=== PATIENT | male | born 1960 ===

== ENCOUNTER 2017-01-28 12:07 | Inpatient (IN) ==
[2017-01-28 12:47] LABS: Basophils % 0.2 % (0.0-0.8); Eosinophils % 0.4 % (0.00-10.9); Hematocrit 28.7 VOL% (42.0-52.0); Hemoglobin 9.9 GM/DL (14.0-18.0); Immature Granulocytes % 0.3 %; Immature Granulocytes Absolute 0.03 #; Lymphocytes # 0.4 10*3/uL (1.4-4.0); Lymphocytes % 4.4 % (21.2-54.2); Mean Corpuscular HGB Conc 34.5 GM/DL (32-36); Mean Corpuscular Hemoglobin 31 PG (27-34); Mean Corpuscular Volume 90.5 FL (87-102); Mean Platelet Volume 11.6 FL (9.6-12.0); Monocytes # 0.5 10*3/uL (0.11-0.8); Monocytes % 5.8 % (1.7-12.7); Neutrophils # 8.3 10*3/uL (1.4-7.4); Neutrophils % 88.9 % (38.7-73.9); Platelet Count 117 T/CUMM (130-400); Red Blood Count 3.17 MC/CUMM (3.8-5.5); Red Cell Distribution Width 12.9 % (9.3-17.3); White Blood Count 9.4 T/CUMM (4-12)
[2017-01-28 12:51] LABS: Apearance,Urine CLEAR (Clear); Bilirubin,Urine Negative (Negative); Blood, Urine Small mg/dL (Negative); Glucose,Urine (UA) 50 mg/dL (Negative); Hyaline Casts,Urine 1 /LPF (0-3); Ketones,Urine Negative (Negative); Nitrite,Urine Negative (Negative); Protein,Urine 100 MG/DL; RBC,Urine 7 /HPF (0-4); Urine Color Yellow (Yellow); Urine Specific Gravity 1.009 (1.001-1.035); Urine Urobilinogen < 2.0 EU/DL (0.2-1.0); WBC,Urine <1 /HPF (0-6)
--- NOTE | 2017-01-28 13:14 | CT Report ---
CT of the head without contrast. Indication: Confusion. Comparison: Outside study from [facility], May 25, 2016. There is generalized prominence of the ventricles and sulci, somewhat prominent for the patient's age. There are remote lacunar infarcts within the left basal ganglia. There is a remote cortical infarct in the left occipital lobe. There is no mass effect, midline shift, or area of hemorrhage. The calvarium is intact. Mild mucosal thickening in the ethmoid sinuses. Mastoid air cells are clear. Impression: 1. Prominence of the ventricles and sulci for the patient's age. 2. Remote lacunar infarcts, and remote left occipital infarct. 3. Mild paranasal sinus disease. The CT exam was performed using one or more of the following dose reduction techniques: Automated exposure control, adjustment of the mA and/or kV according to patient size, or use of iterative reconstruction technique. PROCEDURE INTERPRETED AT [facility] DEPARTMENT OF RADIOLOGY Final Report Signed by: Dr. Jhoana Anderson
[2017-01-28 13:19] LABS: Calcium 7.8 MG/DL (8.5-10.1)
[2017-01-28 13:20] LABS: Albumin 3.6 G/DL (3.4-5.0); Bilirubin,Direct 0.2 MG/DL (0.0-0.20); Bilirubin,Indirect 0.4 MG/DL (0.0-1.0); Bilirubin,Total 0.6 MG/DL (0.2-1.0); Osmolality,Calculated 297.5 MOS/KG (273-304); Potassium 4.2 MMOL/L (3.5-5.1); Total Protein 6.4 G/DL (6.4-8.3)
[2017-01-28 13:22] LABS: Lactic Acid 0.9 MMOL/L (0.4-2.0)
--- NOTE | 2017-01-28 13:27 | XRay Report ---
Portable chest. Indication: Confusion and cough. The heart is normal in size. A dual-lumen catheter is in satisfactory position. There is patchy alveolar infiltrate in the left mid and lower lung field. No pneumothorax. No pleural effusion. Mild gaseous distention of bowel. Surgical clips in the right upper quadrant. Impression: Left lower lung field pneumonia. Follow-up recommended. PROCEDURE INTERPRETED AT [facility] DEPARTMENT OF RADIOLOGY Final Report Signed by: Dr. Jhoana Anderson
--- NOTE | 2017-01-28 14:28 | Hospitalist History & Physical ---
<Arielle Miller - Last Filed: 01/28/17 15:38> Assessment and Plan (1) Altered mental status Status: Acute Assessment and plan: CT negative for any acute changes. Blood cultures pending, lactic acid normal, WBC normal. Glucose wnl. Pt. in renal failure. Will continue to monitor. Order labs in am. Current Visit: No (2) Pneumonia Status: Acute Assessment and plan: Start on IV antibiotics (vancomycin and Merrem). Supplemental O2. Monitor O2 sat with pulse ox. Breathing treatments as necessary. Current Visit: Yes (3) ESRD (end stage renal disease) on dialysis Status: Chronic Assessment and plan: Consult Nephrology. Per ER MD, pt. has missed last 2 weeks of dialysis. bun/ creatinine Current Visit: No (4) HTN (hypertension) Status: Chronic Assessment and plan: Prn IV antihypertensive agent. Once pt's med list is confirmed, we will evaluate and restart any appropriate meds. Current Visit: No Qualifiers: Hypertension type: essential hypertension Qualified Code(s): I10 - Essential (primary) hypertension (5) Anemia Status: Acute Assessment and plan: Monitor serial h&h. Recheck CBC in am. PPI. Current Visit: No (6) Diabetes mellitus Status: Chronic Assessment and plan: History of dm. Glucose stable. Will initiate accuchecks achs. SSI. Check Hbg A1c. Current Visit: No History of Present Illness Chief complaint: altered mental status History of present illness: Mr. Swanson is a 56 year old [place] male with a history of hypertension, CVA, diabetes, end-stage renal failure disease on dialysis, chronic back pain, and arthritis that presented to the ED via EMS from home for further evaluation of altered mental status. HPI is limited secondary to patient's current status. Patient is alone in room and no family is present at bedside. Per triage note, the patient's son found him and called EMS for help. Additionally, the patient is noted to have missed dialysis for the past 2 weeks. Duration of altered mental status is also unknown. On examination in the ED, patient was found to be febrile 102.2 and hypertensive. Patient is oriented to name, place, but is not oriented to time and is unable to answer all other questions. Chest x-ray in ED revealed left lower lung field pneumonia. CT was negative for any acute changes. WBC and lactic acid within normal limits. Bun/creatinine noted at 67/ 6. The patient's case has been discussed with Dr. Olivera patient will be admitted to the intensive care unit for closer monitoring and further evaluation and treatment. Home Medications Medication Instructions Recorded Confirmed Type Carvedilol 25 mg PO DAILY 04/05/16 10/11/16 History Gabapentin Cap/Tab [Neurontin 800 mg PO TID 04/05/16 10/11/16 History Cap/Tab] amLODIPine [Norvasc] 10 mg PO DAILY 04/05/16 10/11/16 History Aspirin EC Tab 81 mg PO DAILY #30 tablet 06/02/16 10/11/16 Rx HYDROcodone/ACETAMIN 10-325 [Zirconia 1 tablet PO Q4H PRN #30 tablet 08/23/1610/11 Rx 10-325] Cinacalcet [Sensipar] 30 mg PO DAILY 10/11/16 10/11/16 History Latanoprost [Latanoprost 0.005 % 1 drop BOTH EYES BEDTIME 10/11/16 10/11/16 History Oph Soln] Morphine Sulfate [Morphine Sulfate 30 mg PO BID 10/11/16 10/11/16 History ER] Allergies Allergy/AdvReac Type Severity Reaction Status Date / Time lisinopril Allergy Intermediate ITCHING Verified 01/28/17 12:22 nalbuphine [From Nubain] Allergy Intermediate Vomiting Verified 01/28/17 12:22 pregabalin Allergy Unknown Unknown/Unable Verified 01/28/17 12:22 to obtain Medical,Surgical,& Family Hx - Medical History Cardio: History of: Hypertension Neurology: History of: Cerebrovascular Accident (X7 WEAK R SIDE) No history of: Seizures HEENT: History of: Ear Problem, Eye Problem Endocrine: No history of: Diabetes Mellitus (IDDM) (MEDS), Diabetes Mellitus (NIDDM) ( MEDS) Renal: History of: Dialysis, Renal Failure (CATHETERS IN RIGHT UPPER CHEST) Musculoskeletal: History of: Back/Neck Problems (chronic back pain), Musculoskeletal Problems (ARTHRITIS) Other: No history of: Cancer - Surgical History Abdominal Surgeries: Surgical HX of: Abdominal Surgery, Cholecystectomy, Hernia Repair Orthopedic Surgeries: Surgical HX of;: Orthopedic Surgery (R AND L KNEE R FOOT RENAL CATHETERS) - Family History Family History: Reports;: Family Hypertension - Social History Smoking Status: Never smoker Frequency of Alcohol Use: None Type of Drug Use: None ROS unobtainable: due to mental status Exam - Constitutional Vitals: Period Temp Pulse Resp BP Sys/Venegas Pulse Ox Last 24 Hr 102.2 F-102.2 F 95-95 20-20 182-182/68-68 92 General appearance: normal weight, no acute distress - Head Head exam: Present: normal inspection, normocephalic - Eye Eye exam: Present: EOMI. Absent: scleral icterus Pupils: Present: DIEGO - Respiratory Respiratory exam: Present: other (coarse) - Cardiovascular Cardiovascular exam: Present: regular rate and rhythm - GI/Abdominal GI/Abdominal exam: Present: normal bowel sounds, soft. Absent: tenderness - Extremities Exam Extremities exam: Present: normal capillary refill, edema - Neurological Exam Neurological exam: Absent: altered - Psychiatric Psychiatric exam: Present: other (unable to assess due to mental status) - Skin Skin exam: Present: normal color, warm, dry Results - Labs CBC & BMP: 01/28/17 12:37 01/28/17 12:37 Lab Results: I have reviewed the past 24 hour labs <Alexander Olivera - Last Filed: 01/28/17 16:26> Assessment and Plan - Time spent with patient Time spent with patient: Greater than 30 minutes (I saw and examed pt in his ICU room today. I agree with history, physical, asssessment and plan listed as above by our [employer] CONTROLLER, Will need to consult Nephrology to resume HD. F/u bc and ur result. Continue IV VCN, merrem and add IV leaquin for sepsis due to pneumonia. Adm to ICU for tonight. May need to consult ID in am. Dialysis central line is not covered by sterile film and pt does not know when this film is taken out. Will clean this central line site and redressing it.) History of Present Illness History of present illness: Mr. Swanson is a 56 year old male Exam - Constitutional Vitals: Period Temp Pulse Resp BP Sys/Venegas Pulse Ox Last 24 Hr 99.4 F-102.2 F 66-95 20-22 136-182/68-96 92-100 Results - Labs CBC & BMP: 01/28/17 12:37 01/28/17 12:37
[2017-01-28 15:01] LABS: Platelet Estimate Decreased
[2017-01-28] MEDS ORDERED: GLUCAGON 1 MG VIAL IM PRN (16:07)
[2017-01-28] MEDS ORDERED: ALBUTEROL 2.5 MG/3 ML NEB RESP TX PRN (16:07)
[2017-01-28] MEDS ORDERED: DEXTROSE 50% 25 GM/50 ML VIAL IV PRN (16:07)
[2017-01-28] MEDS ORDERED: ONDANSETRON 4 MG/2 ML VIAL IV PRN (16:07)
[2017-01-28] MEDS ORDERED: LEVOFLOXACIN INJ 750 MG in PREMIX 1 EACH IV ONE (17:00)
[2017-01-28] MEDS ORDERED: VANCOMYCIN INJ 1,500 MG in SODIUM CHLORIDE 0.9% 500 ML IV ONE (18:30)
[2017-01-28] MEDS: INSULIN LISPRO 100 UNIT/ML SUBCUT SCH ×2 (18:40→20:39)
[2017-01-28] MEDS: MEROPENEM 500 MG in SODIUM CHLORIDE 0.9% 100 ML IV SCH (19:00)
[2017-01-28] MEDS: hydrALAZINE 20 MG/1 ML VIAL IV PRN (23:53)
[2017-01-29] MEDS: MEROPENEM 500 MG in SODIUM CHLORIDE 0.9% 100 ML IV SCH (04:24)
[2017-01-29 05:11] LABS: Basophils % 0.2 % (0.0-0.8); Eosinophils % 0.2 % (0.00-10.9); Hematocrit 28.4 VOL% (42.0-52.0); Hemoglobin 9.7 GM/DL (14.0-18.0); Immature Granulocytes % 0.5 %; Immature Granulocytes Absolute 0.05 #; Lymphocytes # 0.7 10*3/uL (1.4-4.0); Lymphocytes % 6.7 % (21.2-54.2); Mean Corpuscular HGB Conc 34.2 GM/DL (32-36); Mean Corpuscular Hemoglobin 31 PG (27-34); Mean Corpuscular Volume 91.3 FL (87-102); Mean Platelet Volume 12.4 FL (9.6-12.0); Monocytes # 0.5 10*3/uL (0.11-0.8); Monocytes % 4.6 % (1.7-12.7); Neutrophils # 9.3 10*3/uL (1.4-7.4); Neutrophils % 87.8 % (38.7-73.9); Platelet Count 102 T/CUMM (130-400); Red Blood Count 3.11 MC/CUMM (3.8-5.5); White Blood Count 10.6 T/CUMM (4-12)
[2017-01-29 05:48] LABS: Lactic Acid 0.7 MMOL/L (0.4-2.0)
[2017-01-29 05:57] LABS: Calcium 7.4 MG/DL (8.5-10.1); Magnesium 1.9 MG/DL (1.8-2.4); Osmolality,Calculated 296.7 MOS/KG (273-304); Potassium 4.4 MMOL/L (3.5-5.1); Risk Ratio 2.03; Thyroid Stimulating Hormone 0.829 uIU/ml (0.358-3.74); VLDL CHOLESTEROL 12.4 MG/DL
[2017-01-29] MEDS: INSULIN LISPRO 100 UNIT/ML SUBCUT SCH ×4 (07:55→21:22)
[2017-01-29] MEDS: ACETAMINOPHEN 325 MG TABLET PO PRN ×2 (09:01→17:19)
[2017-01-29] MEDS: PANTOPRAZOLE 40 MG TABLET PO SCH (09:01)
[2017-01-29] MEDS: hydrALAZINE 20 MG/1 ML VIAL IV PRN (09:21)
--- NOTE | 2017-01-29 10:01 | Hospitalist Progress Note ---
Assessment and Plan - Time spent with patient Time spent with patient: Greater than 30 minutes (1) Diabetes mellitus Status: Chronic Current Visit: No Qualifiers: Chronic kidney disease stage: on chronic dialysis (2) ESRD (end stage renal disease) on dialysis Status: Chronic Assessment and plan: Assessment and Plan (1) Altered mental status Status: Acute Assessment and plan: CT negative for any acute changes. Blood cultures pending, lactic acid normal, WBC normal. Glucose wnl. Pt. in renal failure. Will continue to monitor. Order labs in am. Current Visit: YES (2) Pneumonia Status: Acute Assessment and plan: Start on IV antibiotics (vancomycin and Merrem). Supplemental O2. Monitor O2 sat with pulse ox. Breathing treatments as necessary. Current Visit: Yes (3) ESRD (end stage renal disease) on dialysis Status: Chronic Assessment and plan: Consult Nephrology. Per ER MD, pt. has missed last 2 weeks of dialysis. Current Visit: YES (4) HTN (hypertension) Status: Chronic Assessment and plan: Prn IV antihypertensive agent. Once pt's med list is confirmed, we will evaluate and restart any appropriate meds. Current Visit: YES Qualifiers: Hypertension type: essential hypertension Qualified Code(s): I10 - Essential (primary) hypertension (5) Anemia Status: Acute Assessment and plan: Monitor serial h&h. Recheck CBC in am. PPI. Current Visit: No (6) Diabetes mellitus Status: Chronic Assessment and plan: History of dm. Glucose stable. Will initiate accuchecks achs. SSI. Check Hbg A1c. Current Visit: No Current Visit: No Hospitalist: Subjective Interval history: Patient seen and examined. No acute events overnight. Case discussed with nursing staff. Labs reviewed. The patient has admittedly been noncompliant with his outpatient dialysis treatments. Consult for nephrology has been placed. Exam - Constitutional Vitals: Period Temp Pulse Resp BP Sys/Venegas Pulse Ox Last 24 Hr 97.5 F-102.2 F 57-103 10-22 136-200/57-96 92-100 Exam: Constitutional System: No distress. No tremulousness. Head: Normocephalic, atraumatic. Ears, Nose and Throat System: No pain or tenderness. No epistaxis or discharge Eyes System: Pupils equal, round, and reactive. Extraocular muscles intact. Neck: Supple, without adenopathy, No jugular venous distention. No thyromegaly, neck mass, or prior surgery apparent. Respiratory System: Chest clear to auscultation. Dialysis catheter noted in the right chest Cardiovascular System: Heart with regular rate and rhythm. No murmur. GI System: Abdomen soft, nontender. Normo active bowel sounds present. Musculoskeletal System: limbs with no pedal edema. Full distal pulses. Contracture noted in the right upper extremity Neurological System: No discernable sensory deficit. No aphasia Psychiatric System: Flat affect Results - Labs CBC & BMP: 01/29/17 04:24 01/29/17 04:24 Lab Results: I have reviewed the past 24 hour labs
[2017-01-29] MEDS: MORPHINE ER 30 MG TABLET PO SCH (10:37)
--- NOTE | 2017-01-29 10:45 | Infectious Disease Consult ---
Assessment and Plan (1) Positive blood culture Status: Acute Assessment and plan: Gram-positive cocci in a set of blood cultures. We will have to wait on final ID to determine if true infection versus contamination. It could very well be staph aureus given the presence of his dialysis catheter. Recommendations: 1. Agree with empiric vancomycin. Will consult pharmacy to assist with dosing and monitoring. Goal trough level is ~20. 2. Repeat blood cultures tomorrow 3. If this is not far as we will need echocardiogram to rule out endocarditis 4. Hemodialysis catheter needs to be removed since the patient is now using an AV fistula Current Visit: Yes (2) Pneumonia Status: Acute Assessment and plan: Healthcare associated pneumonia in this patient who goes for dialysis. Recommendations: 1. Patient has not had previous multidrug-resistant organisms isolated so I think we are okay with Zosyn rather than meropenem. Will de-escalate to Zosyn renally dosed at 25 g every 8 hours 2. Agree with empiric vancomycin 3. I will get if possible sputum for Gram stain and culture Thank you very much for the consult. Will follow. Current Visit: Yes (3) Altered mental status Status: Acute Current Visit: No (4) Diabetes mellitus Status: Chronic Current Visit: No Qualifiers: Chronic kidney disease stage: on chronic dialysis (5) ESRD (end stage renal disease) on dialysis Status: Chronic Current Visit: No (6) HTN (hypertension) Status: Chronic Current Visit: No Qualifiers: Hypertension type: essential hypertension Qualified Code(s): I10 - Essential (primary) hypertension History of Present Illness Chief complaint: Suspected infected dialysis catheter, pneumonia History of present illness: Patient was a poor historian so much of the history was obtained from review of the records. Mr. Swanson is a 56 year old male with multiple comorbid including end-stage renal disease on hemodialysis who was brought to the hospital because his son found him with altered mental state and called the ambulance. Apparently the patient missed dialysis for the past 2 weeks. He came to the hospital he was noted to be febrile to 102.2 and an infiltrate was loose within the left lung base. He was admitted to ICU and started on broad-spectrum empiric antibiotics. Patient never required vasopressor support. He had an AV fistula done in July this year and he says he has been using it for the past 2 months at dialysis, however he still has dialysis catheter in the right subclavian. Home Medications Medication Instructions Recorded Confirmed Type Carvedilol 25 mg PO BID 04/05/16 01/29/17 History Gabapentin Cap/Tab [Neurontin 800 mg PO TID 04/05/16 01/29/17 History Cap/Tab] amLODIPine [Norvasc] 10 mg PO DAILY 04/05/16 01/29/17 History Aspirin EC Tab 81 mg PO DAILY #30 tablet 06/02/16 01/29/17 Rx Cinacalcet [Sensipar] 30 mg PO DAILY 10/11/16 01/29/17 History Latanoprost [Latanoprost 0.005 % 1 drop BOTH EYES BEDTIME 10/11/16 01/29/17 History Oph Soln] Morphine Sulfate [Morphine Sulfate 30 mg PO DAILY 10/11/16 01/29/17 History ER] Allergies Allergy/AdvReac Type Severity Reaction Status Date / Time lisinopril Allergy Intermediate ITCHING Verified 01/28/17 12:22 nalbuphine [From Nubain] Allergy Intermediate Vomiting Verified 01/28/17 12:22 pregabalin Allergy Unknown Unknown/Unable Verified 01/28/17 12:22 to obtain ROS unobtainable: due to mental status Medical,Surgical,& Family Hx - Medical History Cardio: History of: Hypertension Neurology: History of: Cerebrovascular Accident (X7 WEAK R SIDE), Seizures HEENT: History of: Ear Problem, Eye Problem Endocrine: History of: Diabetes Mellitus (NIDDM) (MEDS) No history of: Diabetes Mellitus (IDDM) (MEDS) Renal: History of: Dialysis, Renal Failure (CATHETERS IN RIGHT UPPER CHEST) Gastrointestinal: History of: Liver Problems (cirhosis) Musculoskeletal: History of: Back/Neck Problems (chronic back pain), Musculoskeletal Problems (ARTHRITIS) Other: No history of: Cancer - Surgical History Abdominal Surgeries: Surgical HX of: Abdominal Surgery, Cholecystectomy, Hernia Repair Orthopedic Surgeries: Surgical HX of;: Orthopedic Surgery (R AND L KNEE R FOOT) - Family History Family History: Reports;: Family Hypertension - Social History Smoking Status: Never smoker Frequency of Alcohol Use: None Type of Drug Use: None Infectious Disease Exam H&P - Constitutional Vitals: Vital Signs Temp Pulse Resp BP Pulse Ox 98.7 F 94 H 12 142/70 97 01/29/17 07:00 01/29/17 10:00 01/29/17 10:00 01/29/17 10:00 01/29/17 10:00 Intake and Output 01/28/17 01/29/17 01/29/17 23:59 07:59 15:59 Intake Total 100 / 100 750 / 750 240 / 240 Output Total 555 / 555 150 / 150 60 / 60 Balance -455 / -455 600 / 600 180 / 180 Intake: IV 100 / 100 750 / 750 Levaquin Inj 750 mg In 150 / 150 Premix 1 Each @ 100 mls/ hr IV ONCE ONE Rx#: [id number] Merrem 500 mg In Ns 100 100 / 100 100 / 100 ml @ 200 mls/hr IV Q12H AASHISH Rx#:[id number] Vancomycin Inj 1,000 mg 500 / 500 In Ns 500 ml @ 250 mls/hr IV ONCE ONE Rx#: [id number] Oral 240 / 240 Output: Urine 555 / 555 150 / 150 60 / 60 Other: Voiding Method Indwelling Catheter Indwelling Catheter Weight 88.587 kg 88.813 kg Patient Weight 01/29/17 23:59 Weight 88.813 kg Exam: General: Patient chronically ill looking, he was uncooperative with exam at times HEENT: Mucous membranes pink and moist, anicteric acyanotic, DIEGO, no oral exudates Neck: Supple, no thyroid gland enlargement, dialysis catheter noted in right upper chest with no surrounding erythema no drainage from exit site Respiratory system: Breath sounds vesicular, no crepitations or wheezes Cardiovascular: Normal S1 and S2, no murmurs appreciated Abdomen: Normal bowel sounds, soft nontender throughout, no organomegaly or mass Genitourinary: No suprapubic pain or bladder distention, clear urine from Wong catheter Extremities: no edema, deformed right hand from past stroke Skin: No rash but extremely dry and exfoliating the legs and feet Reports - Labs CBC & BMP: 01/29/17 04:24 01/29/17 04:24 Labs: Laboratory Results - last 24 hr 01/28/17 01/28/17 01/28/17 12:37 12:37 12:37 WBC 9.4 RBC 3.17 L Hgb 9.9 L Hct 28.7 L MCV 90.5 MCH 31 MCHC 34.5 RDW 12.9 Plt Count 117 L MPV 11.6 Neut % (Auto) 88.9 H Lymph % (Auto) 4.4 L Holt % (Auto) 5.8 Eos % (Auto) 0.4 Baso % (Auto) 0.2 Neut # (Auto) 8.3 H Lymph # (Auto) 0.4 L Holt # (Auto) 0.5 Eos # (Auto) 0.0 Baso # (Auto) 0.0 Immature Gran % 0.3 Nucleated RBC % 0.0 Immature Gran # 0.03 Nucleated RBCs # 0.00 Platelet Estimate Decreased Morphology Comment Sodium 139 Potassium 4.2 Chloride 106 Carbon Dioxide 23 Anion Gap 14.2 BUN 67 H Creatinine 6.00 H GFR Calculation 11 BUN/Creatinine Ratio 11.00 Glucose 126 H POC Glucose Hemoglobin A1c Calculated Osmolality 297.5 Lactic Acid 0.9 Calcium 7.8 L Magnesium Total Bilirubin 0.60 Direct Bilirubin 0.20 Indirect Bilirubin 0.4 AST 11 ALT 19 Alkaline Phosphatase 110 Ammonia Total Protein 6.4 Albumin 3.6 Triglycerides Cholesterol LDL Cholesterol VLDL Cholesterol HDL Cholesterol Heart Disease Risk Ratio b-Hydroxybutyric mmol/L 0.3 Free T4 TSH 3rd Generation Urine Color Yellow Urine Appearance Clear Urine pH 6.0 Ur Specific Chemult 1.009 Urine Protein 100 Urine Glucose (UA) 50 Urine Ketones Negative Urine Blood Small Urine Nitrate Negative Urine Bilirubin Negative Urine Urobilinogen < 2.0 H Urine Leukocytes Negative Urine RBC 7 Urine WBC <1 Hyaline Casts 1 Ur Culture Indicated? Not indicated 01/28/17 01/28/17 01/28/17 16:03 16:19 20:13 WBC RBC Hgb Hct MCV MCH MCHC RDW Plt Count MPV Neut % (Auto) Lymph % (Auto) Holt % (Auto) Eos % (Auto) Baso % (Auto) Neut # (Auto) Lymph # (Auto) Holt # (Auto) Eos # (Auto) Baso # (Auto) Immature Gran % Nucleated RBC % Immature Gran # Nucleated RBCs # Platelet Estimate Morphology Comment Sodium Potassium Chloride Carbon Dioxide Anion Gap BUN Creatinine GFR Calculation BUN/Creatinine Ratio Glucose POC Glucose 126 H 151 H Hemoglobin A1c Calculated Osmolality Lactic Acid Calcium Magnesium Total Bilirubin Direct Bilirubin Indirect Bilirubin AST ALT Alkaline Phosphatase Ammonia 21 Total Protein Albumin Triglycerides Cholesterol LDL Cholesterol VLDL Cholesterol HDL Cholesterol Heart Disease Risk Ratio b-Hydroxybutyric mmol/L Free T4 TSH 3rd Generation Urine Color Urine Appearance Urine pH Ur Specific Chemult Urine Protein Urine Glucose (UA) Urine Ketones Urine Blood Urine Nitrate Urine Bilirubin Urine Urobilinogen Urine Leukocytes Urine RBC Urine WBC Hyaline Casts Ur Culture Indicated? 01/29/17 01/29/17 01/29/17 04:24 04:24 04:24 WBC 10.6 RBC 3.11 L Hgb 9.7 L Hct 28.4 L MCV 91.3 MCH 31 MCHC 34.2 RDW 13.0 Plt Count 102 L MPV 12.4 H Neut % (Auto) 87.8 H Lymph % (Auto) 6.7 L Holt % (Auto) 4.6 Eos % (Auto) 0.2 Baso % (Auto) 0.2 Neut # (Auto) 9.3 H Lymph # (Auto) 0.7 L Holt # (Auto) 0.5 Eos # (Auto) 0.0 Baso # (Auto) 0.0 Immature Gran % 0.5 Nucleated RBC % 0.0 Immature Gran # 0.05 Nucleated RBCs # 0.00 Platelet Estimate Morphology Comment Sodium 138 Potassium 4.4 Chloride 107 Carbon Dioxide 19 L Anion Gap 16.4 H BUN 70 H Creatinine 5.70 H GFR Calculation 12 BUN/Creatinine Ratio 12.00 Glucose 121 H POC Glucose Hemoglobin A1c 4.4 Calculated Osmolality 296.7 Lactic Acid 0.7 Calcium 7.4 L Magnesium 1.9 Total Bilirubin Direct Bilirubin Indirect Bilirubin AST ALT Alkaline Phosphatase Ammonia Total Protein Albumin Triglycerides 62 Cholesterol 75 LDL Cholesterol 32.0 VLDL Cholesterol 12.4 HDL Cholesterol 37 L Heart Disease Risk Ratio 2.03 b-Hydroxybutyric mmol/L Free T4 TSH 3rd Generation 0.829 Urine Color Urine Appearance Urine pH Ur Specific Chemult Urine Protein Urine Glucose (UA) Urine Ketones Urine Blood Urine Nitrate Urine Bilirubin Urine Urobilinogen Urine Leukocytes Urine RBC Urine WBC Hyaline Casts Ur Culture Indicated? 01/29/17 04:24 WBC RBC Hgb Hct MCV MCH MCHC RDW Plt Count MPV Neut % (Auto) Lymph % (Auto) Holt % (Auto) Eos % (Auto) Baso % (Auto) Neut # (Auto) Lymph # (Auto) Holt # (Auto) Eos # (Auto) Baso # (Auto) Immature Gran % Nucleated RBC % Immature Gran # Nucleated RBCs # Platelet Estimate Morphology Comment Sodium Potassium Chloride Carbon Dioxide Anion Gap BUN Creatinine GFR Calculation BUN/Creatinine Ratio Glucose POC Glucose Hemoglobin A1c Calculated Osmolality Lactic Acid Calcium Magnesium Total Bilirubin Direct Bilirubin Indirect Bilirubin AST ALT Alkaline Phosphatase Ammonia Total Protein Albumin Triglycerides Cholesterol LDL Cholesterol VLDL Cholesterol HDL Cholesterol Heart Disease Risk Ratio b-Hydroxybutyric mmol/L Free T4 1.13 TSH 3rd Generation Urine Color Urine Appearance Urine pH Ur Specific Chemult Urine Protein Urine Glucose (UA) Urine Ketones Urine Blood Urine Nitrate Urine Bilirubin Urine Urobilinogen Urine Leukocytes Urine RBC Urine WBC Hyaline Casts Ur Culture Indicated? - Reports Microbiology: Microbiology 01/28/17 12:18 Blood Culture - Preliminary Blood Gram Positive Cocci - Diagnostic Findings Procedure: Chest x-ray: image reviewed by me, report reviewed by me (Left lung base consolidation)
--- NOTE | 2017-01-29 10:47 | Nephrology Consult Note ---
History of Present Illness Chief complaint: End-stage renal disease in a patient admitted for being found down History of present illness: Mr. Swanson is a 56 year old male with a history of end-stage renal disease who dialyzes in [facility]. The patient was admitted to [facility] in transfer from [facility] where he presented for decreased mentation. The patient apparently was found down by a relative and brought to the [facility]. The patient was started on hemodialysis about 7- 8 months ago when he presented with some obstructive problems and a creatinine of around 9 mg/dL which did not decrease with Wong drainage. The patient in the past month and a half has been the dialysis on 3 occasions is reviewed with the outpatient dialysis nurse. The patient states he last went to dialysis about 2 weeks ago. The patient states he does not go to dialysis because he cramps a lot on dialysis and it makes him feel bad. Patient at presentation here had a creatinine of around 6 mg/dL, it is decreased to 5.7 mg/dL today, his sodium bicarbonate is 20, his potassium is okay around 4.4, his blood urea nitrogen is around 67. The patient denies any decrease in appetite or changes in the way food tastes. He states his energy level is unchanged from his usual. The patient's main complaint today is not getting his pain medicine for the pain and on his right side of the body which resulted from having 7 strokes. The patient has a tunneled right dialysis neck catheter in place. The patient has also had some fever up to 102 per the medical record although the patient denies any fever or chills. His chest x-ray is read as having a left lower lobe infiltrate. The patient did have a temperature of 102.2 here and initially and he does have a left shift to his white blood cell count although his total white cells remain in the normal range. ROS: Head - denies headaches ENT - denies sore throat Lymphatics - denies lymphadenopathy Hematology - denies bleeding problems Heart - denies chest pain Lungs - denies shortness of breath Abdomen - denies abdominal pain Musculoskeletal -positive arthritis Skin - denies rash Neurology -positive stroke General - denies fever PE: General: in no acute distress Eyes: Pupils are round and reactive, conjunctivae are clear ENT: Nose is clear, O/P is benign Neck: Supple, no thyromegaly Lymphatics: No cervical, supraclavicular or axillary adenopathy Heart: Regular rate and rhythm, no edema Lungs: Clear to auscultation anteriorly, chest expansion symmetric Abdomen: Soft, normoactive bowel sounds, no hepatomegaly Musculoskeletal: No joint erythema or effusions or joint asymmetry, he does hold his right arm and kind of a contracted state and it has a decreased mobility Skin: Normal turgor, normal hydration, no rash Neuro/Psych: Alert and cooperative with fair insight however he does have a slowed response pattern. Home Medications Medication Instructions Recorded Confirmed Type Carvedilol 25 mg PO BID 04/05/16 01/29/17 History Gabapentin Cap/Tab [Neurontin 800 mg PO TID 04/05/16 01/29/17 History Cap/Tab] amLODIPine [Norvasc] 10 mg PO DAILY 04/05/16 01/29/17 History Aspirin EC Tab 81 mg PO DAILY #30 tablet 06/02/16 01/29/17 Rx Cinacalcet [Sensipar] 30 mg PO DAILY 10/11/16 01/29/17 History Latanoprost [Latanoprost 0.005 % 1 drop BOTH EYES BEDTIME 10/11/16 01/29/17 History Oph Soln] Morphine Sulfate [Morphine Sulfate 30 mg PO DAILY 10/11/16 01/29/17 History ER] Allergies Allergy/AdvReac Type Severity Reaction Status Date / Time lisinopril Allergy Intermediate ITCHING Verified 01/28/17 12:22 nalbuphine [From Nubain] Allergy Intermediate Vomiting Verified 01/28/17 12:22 pregabalin Allergy Unknown Unknown/Unable Verified 01/28/17 12:22 to obtain Medical,Surgical,& Family Hx - Medical History Cardio: History of: Hypertension Neurology: History of: Cerebrovascular Accident (X7 WEAK R SIDE), Seizures HEENT: History of: Ear Problem, Eye Problem Endocrine: History of: Diabetes Mellitus (NIDDM) (MEDS) No history of: Diabetes Mellitus (IDDM) (MEDS) Renal: History of: Dialysis, Renal Failure (CATHETERS IN RIGHT UPPER CHEST) Gastrointestinal: History of: Liver Problems (cirhosis) Musculoskeletal: History of: Back/Neck Problems (chronic back pain), Musculoskeletal Problems (ARTHRITIS) Other: No history of: Cancer - Surgical History Abdominal Surgeries: Surgical HX of: Abdominal Surgery, Cholecystectomy, Hernia Repair Orthopedic Surgeries: Surgical HX of;: Orthopedic Surgery (R AND L KNEE R FOOT) - Family History Family History: Reports;: Family Hypertension - Social History Smoking Status: Never smoker Frequency of Alcohol Use: None Type of Drug Use: None Exam - Vital Signs Vital signs: Period Temp Pulse Resp BP Sys/Venegas Pulse Ox Last 24 Hr 97.5 F-102.2 F 57-103 10- 136-200/57-96 92-100 Results - Labs CBC & BMP: 01/29/17 04:24 01/29/17 04:24 Assessment and Plan (1) Renal failure Status: Chronic Assessment and plan: This patient has CKD 4-5, he has not had dialysis in 2 weeks is electrolytes look okay I believe his mental function is around his baseline, his appetite is okay is not having nausea and vomiting. I am inclined at this time to see how he does off of dialysis. Current Visit: No (2) Pneumonia Status: Acute Assessment and plan: I agree with the current antibiotics Current Visit: Yes (3) Anemia Status: Acute Assessment and plan: Patient's hematocrit is around 29% Current Visit: No (4) Chronic pain Status: Acute Current Visit: No (5) Status post multiple cerebral infarctions Status: Acute Current Visit: No (6) Weakness Status: Acute Current Visit: No (7) Diabetes mellitus Status: Chronic Assessment and plan: Patient denies a history of diabetes Current Visit: No Qualifiers: Chronic kidney disease stage: on chronic dialysis (8) HTN (hypertension) Status: Chronic Assessment and plan: We will continue his present antihypertensives Current Visit: No Qualifiers: Hypertension type: essential hypertension Qualified Code(s): I10 - Essential (primary) hypertension (9) Metabolic acidosis Status: Resolved Assessment and plan: I am going to start him on some sodium bicarbonate Current Visit: No
[2017-01-29] MEDS: PIPERACILLIN/TAZOBACTAM 2,250 MG in SODIUM CHLORIDE 0.9% 100 ML IV SCH ×2 (13:09→22:14)
[2017-01-29] MEDS: GABAPENTIN 400 MG CAPSULE PO SCH ×2 (15:18→21:21)
[2017-01-29] MEDS ORDERED: VANCOMYCIN INJ 750 MG in SODIUM CHLORIDE 0.9% 250 ML IV PRN (18:30)
[2017-01-29] MEDS: CARVEDILOL 25 MG TABLET PO SCH (21:21)
[2017-01-29] MEDS: SODIUM BICARBONATE 650 MG TABLET PO SCH (21:21)
[2017-01-29] MEDS: LATANOPROST 0.005% OPH SOLN 2.5 ML BOTTLE BOTH EYES SCH (21:22)
[2017-01-30] MEDS: PIPERACILLIN/TAZOBACTAM 2,250 MG in SODIUM CHLORIDE 0.9% 100 ML IV SCH ×3 (03:33→21:52)
[2017-01-30 06:38] LABS: Basophils % 0.2 % (0.0-0.8); Eosinophils # 0.1 10*3/uL (0.0-0.87); Eosinophils % 2.8 % (0.00-10.9); Hemoglobin 8.1 GM/DL (14.0-18.0); Immature Granulocytes % 0.4 %; Immature Granulocytes Absolute 0.02 #; Lymphocytes # 0.9 10*3/uL (1.4-4.0); Lymphocytes % 20.2 % (21.2-54.2); Mean Corpuscular HGB Conc 33.8 GM/DL (32-36); Mean Corpuscular Hemoglobin 31 PG (27-34); Mean Corpuscular Volume 91.6 FL (87-102); Mean Platelet Volume 12.1 FL (9.6-12.0); Monocytes # 0.3 10*3/uL (0.11-0.8); Monocytes % 7.1 % (1.7-12.7); Neutrophils # 3.2 10*3/uL (1.4-7.4); Neutrophils % 69.3 % (38.7-73.9); Platelet Count 92 T/CUMM (130-400); Red Blood Count 2.62 MC/CUMM (3.8-5.5); Red Cell Distribution Width 13.2 % (9.3-17.3); White Blood Count 4.7 T/CUMM (4-12)
[2017-01-30 07:04] LABS: Calcium 7.8 MG/DL (8.5-10.1); Osmolality,Calculated 298.4 MOS/KG (273-304); Potassium 4.5 MMOL/L (3.5-5.1)
[2017-01-30 07:06] LABS: Hypochromasia Slight
--- NOTE | 2017-01-30 08:16 | Nephrology Progress Note ---
Nephrology - PN: Subj Interval history: Patient complaining of nausea and vomiting this morning. He was actively vomiting on my evaluation today. Review of systems pulmonary denies shortness of breath Physical exam general the patient is chronically ill-appearing, he has no pitting edema, he is awake alert and coherent Assessment/plan 1. Chronic kidney disease stage V-patient's creatinine 6 mg/dL it has been stable around this level since admission will continue to monitor this. I am going to try and hold on dialyzing this patient as he has been noncompliant with dialysis for the past month and a half. I will ask general surgery to remove his tunneled dialysis catheter. 2. Metabolic acidosis-his bicarb is 21 today 3. Pneumonia-this patient had gram-positive cocci grow out of his blood cultures will continue present antibiotics 4. Anemia-patient's hematocrits 24% down from 28% yesterday we will continue to monitor this 5. Hypertension this is controlled Exam (PN)-Nephrology - Vital Signs Vital signs: Period Temp Pulse Resp BP Sys/Venegas Pulse Ox Last 24 Hr 97.1 F-98.4 F 54-94 12-20 135-183/58-76 94-98 - Lab 01/30/17 05:44 01/30/17 05:44 Most recent lab results Calcium 7.8 MG/DL (8.5-10.1) L 01/30/17 05:44 Magnesium 2.0 MG/DL (1.8-2.4) 01/30/17 05:44 Assessment and Plan (1) Renal failure Status: Chronic Assessment and plan: This patient has CKD 4-5, he has not had dialysis in 2 weeks is electrolytes look okay I believe his mental function is around his baseline, his appetite is okay is not having nausea and vomiting. I am inclined at this time to see how he does off of dialysis. Current Visit: No (2) Pneumonia Status: Acute Assessment and plan: I agree with the current antibiotics Current Visit: Yes (3) Anemia Status: Acute Assessment and plan: Patient's hematocrit is around 29% Current Visit: No (4) Chronic pain Status: Acute Current Visit: No (5) Status post multiple cerebral infarctions Status: Acute Current Visit: No (6) Weakness Status: Acute Current Visit: No (7) Diabetes mellitus Status: Chronic Assessment and plan: Patient denies a history of diabetes Current Visit: No Qualifiers: Chronic kidney disease stage: on chronic dialysis (8) HTN (hypertension) Status: Chronic Assessment and plan: We will continue his present antihypertensives Current Visit: No Qualifiers: Hypertension type: essential hypertension Qualified Code(s): I10 - Essential (primary) hypertension (9) Metabolic acidosis Status: Resolved Assessment and plan: I am going to start him on some sodium bicarbonate Current Visit: No
[2017-01-30] MEDS: INSULIN LISPRO 100 UNIT/ML SUBCUT SCH ×4 (08:35→21:44)
[2017-01-30] MEDS: PANTOPRAZOLE 40 MG TABLET PO SCH (08:36)
[2017-01-30] MEDS: CINACALCET 30 MG TABLET PO SCH (08:36)
[2017-01-30] MEDS: GABAPENTIN 400 MG CAPSULE PO SCH ×3 (08:36→21:53)
[2017-01-30] MEDS: ASPIRIN EC 81 MG TABLET PO SCH (08:36)
[2017-01-30] MEDS: amLODIPine 10 MG TABLET PO SCH (08:36)
[2017-01-30] MEDS: SODIUM BICARBONATE 650 MG TABLET PO SCH ×2 (08:36→21:53)
[2017-01-30] MEDS: MORPHINE ER 30 MG TABLET PO SCH (08:36)
[2017-01-30] MEDS: CARVEDILOL 25 MG TABLET PO SCH ×2 (08:38→21:53)
[2017-01-30] MEDS ORDERED: MORPHINE ER 30 MG TABLET PO SCH (09:00)
--- NOTE | 2017-01-30 10:51 | General Surgery Consult Note ---
Assessment and Plan - Time spent with patient Time spent with patient: Greater than 30 minutes (1) Altered mental status Status: Acute Assessment and plan: Mr. Swanson is a 56-year-old male with multiple medical problems admitted with altered mental status due to pneumonia and right chest wall tunneled HD catheter infection. Dr. lOmstead and Dr. Lebron are both requesting removal. Catheter will be removed at the bedside by Dr. Wallis when the supplies are available. Dr. Wallis to see and examine patient and further recommendations to follow. Current Visit: No (2) Diabetes mellitus Status: Chronic Current Visit: No Qualifiers: Chronic kidney disease stage: on chronic dialysis (3) ESRD (end stage renal disease) on dialysis Status: Chronic Current Visit: No (4) Pneumonia Status: Acute Current Visit: Yes (5) Positive blood culture Status: Acute Current Visit: Yes History of Present Illness Chief complaint: Nausea and vomiting History of present illness: Mr. Swanson is a 56 year old male with history of hypertension, CVA, diabetes, chronic back pain, anemia, end-stage renal disease on hemodialysis admitted by the hospitalist service on 01/28/2017 with altered mental status due to pneumonia and HD catheter infection. Dr. Lebron from infectious disease and Dr. Olmstead from nephrology are both following. According to the ED records the patient's son found him and called EMS for help. He was taken to the [facility] where he was transferred here for further evaluation. Patient had missed dialysis for the past 2 weeks and chest x-ray showed a left lower lung pneumonia. He received fluid resuscitation and IV antibiotics. He has positive blood cultures and is now having some nausea and vomiting. Patient states he is thinking more clearly today but he is having nausea and vomiting. He does not remember much of the last several days. Patient had a right upper extremity brachiocephalic AV fistula placed by Dr. Wallis on 08/23/2016. Patient states that they have been using this in dialysis for the last 1-2 months. Patients HD catheter was placed on 06/01/[address] Wallis and this is no longer in use. Dr. Lebron and Dr. Olmstead are both requesting Dr. Wallis to remove his right chest HD tunneled catheter. Patient denies headache, dizziness chest pain, shortness of breath, abdominal pain, constipation, or lower extremity edema. Home Medications Medication Instructions Recorded Confirmed Type Carvedilol 25 mg PO BID 04/05/16 01/29/17 History Gabapentin Cap/Tab [Neurontin 800 mg PO TID 04/05/16 01/29/17 History Cap/Tab] amLODIPine [Norvasc] 10 mg PO DAILY 04/05/16 01/29/17 History Aspirin EC Tab 81 mg PO DAILY #30 tablet 06/02/16 01/29/17 Rx Cinacalcet [Sensipar] 30 mg PO DAILY 10/11/16 01/29/17 History Latanoprost [Latanoprost 0.005 % 1 drop BOTH EYES BEDTIME 10/11/16 01/29/17 History Oph Soln] Morphine Sulfate [Morphine Sulfate 30 mg PO DAILY 10/11/16 01/29/17 History ER] Allergies Allergy/AdvReac Type Severity Reaction Status Date / Time lisinopril Allergy Intermediate ITCHING Verified 01/28/17 12:22 nalbuphine [From Nubain] Allergy Intermediate Vomiting Verified 01/28/17 12:22 pregabalin Allergy Unknown Unknown/Unable Verified 01/28/17 12:22 to obtain Medical,Surgical,& Family Hx - Medical History Cardio: History of: Hypertension Neurology: History of: Cerebrovascular Accident (X7 WEAK R SIDE), Seizures HEENT: History of: Ear Problem, Eye Problem Endocrine: History of: Diabetes Mellitus (NIDDM) (MEDS) No history of: Diabetes Mellitus (IDDM) (MEDS) Renal: History of: Dialysis, Renal Failure (CATHETERS IN RIGHT UPPER CHEST) Gastrointestinal: History of: Liver Problems (cirhosis) Musculoskeletal: History of: Back/Neck Problems (chronic back pain), Musculoskeletal Problems (ARTHRITIS) Other: No history of: Cancer - Surgical History Abdominal Surgeries: Surgical HX of: Abdominal Surgery, Cholecystectomy, Hernia Repair Orthopedic Surgeries: Surgical HX of;: Orthopedic Surgery (R AND L KNEE R FOOT) - Family History Family History: Reports;: Family Hypertension - Social History Smoking Status: Never smoker Frequency of Alcohol Use: None Type of Drug Use: None Marital Status: Single Lives With:: Children Functional capacity: uses cane/walker Review of systems: A complete 10 system review of systems was obtained and pertinent positives and negatives per HPI Exam - Constitutional Vitals: Period Temp Pulse Resp BP Sys/Venegas Pulse Ox Last 24 Hr 97.1 F-98.4 F 54-91 12-20 135-156/58-76 94-98 Exam: Constitutional System: No distress. No tremulousness. Head: Normocephalic, atraumatic. Ears, Nose and Throat System: No evidence of Otitis or Mastoiditis. No epistaxis or discharge, left eye droop Eyes System: Pupils equal, round, and reactive. Extraocular muscles intact. Neck: Supple, without adenopathy, No jugular venous distention. No thyromegaly, neck mass, or prior surgery apparent. Respiratory System: Chest clear to auscultation. Cardiovascular System: Heart with regular rate and rhythm. No murmur. GI System: Abdomen soft, nontender. Normo active bowel sounds present. Musculoskeletal System: limbs with no pedal edema. Full distal pulses. Right chest with tunneled HD catheter intact, no erythema or purulence noted Neurological System: No discernable sensory deficit. No aphasia Psychiatric System: Conversation is rational Results - Labs CBC & BMP: 01/30/17 05:44 01/30/17 05:44 Lab Results: I have reviewed the past 24 hour labs
[2017-01-30] MEDS ORDERED: LIDOCAINE 1% 20 ML VIAL MISC INJ ONE (11:19)
--- NOTE | 2017-01-30 15:05 | Hospitalist Progress Note ---
Assessment and Plan (1) Bacteremia Status: Acute Assessment and plan: Although patient has a reported to have pneumonia, likely etiology is internal dialysis catheter surgery already consulted for removal by infectious disease is following the patient he is on Zosyn I am not sure when was the last time he received vancomycin there is no vancomycin level available. I will inquire about the vancomycin dosing and decide if need to give a dose or obtain the level Current Visit: Yes (2) ESRD (end stage renal disease) Status: Chronic Assessment and plan: Patient has CKD 5/end-stage renal disease. Nephrology following I do not see any urgency for hemodialysis based on his electrolytes and volume status. Current Visit: Yes (3) Pneumonia Status: Acute Assessment and plan: Patient was noted to have pneumonia with left infiltrate on x-ray he will be on antibiotics monitor the response Current Visit: Yes (4) Anemia Status: Chronic Assessment and plan: Patient has chronic anemia likely due to chronic disease with an similar disease status will keep monitor there is some drop from yesterday but this could be because of hydration status I will check stool Hemoccult and iron studies B12 folic acid level Current Visit: No Hospitalist: Subjective Interval history: Mr. Swanson is a 56 year old male with a history of hypertension, CVA, diabetes, end-stage renal failure disease on dialysis, chronic back pain, and arthritis. He has been noncompliant to the dialysis and has not dialyzed for a month and a half he still makes urine. He has tunneled dialysis catheter and also has AV fistula in right upper extremities. He was admitted with the fever and altered mental status. He was not hypotensive requiring pressor support. He was started on broad-spectrum antibiotic and is being followed by infectious disease. Patient himself said he does not remember what happened. He is afebrile now surgery has been consulted for tunneled dialysis catheter removal. Patient also followed by the nephrology in the holding on dialysis for now Exam - Constitutional Vitals: Period Temp Pulse Resp BP Sys/Venegas Pulse Ox Last 24 Hr 97.1 F-98.3 F 54-77 14-20 135-156/62-76 94-98 General appearance: no acute distress - Respiratory Respiratory exam: Present: clear to auscultation bilaterally. Absent: rales, rhonchi - Cardiovascular Cardiovascular exam: Present: regular rate and rhythm. Absent: tachycardia - GI/Abdominal GI/Abdominal exam: Present: normal bowel sounds, soft. Absent: distended, tenderness - Extremities Exam Extremities exam: Present: normal inspection. Absent: edema - Neurological Exam Neurological exam: Present: alert Results - Labs CBC & BMP: 01/30/17 05:44 01/30/17 05:44 Lab Results: I have reviewed the past 24 hour labs
[2017-01-30] MEDS: LEVOFLOXACIN INJ 500 MG in PREMIX 1 EACH IV SCH (17:09)
--- NOTE | 2017-01-30 17:19 | Infectious Disease Progress ---
Assessment and Plan (1) Positive blood culture Status: Acute Assessment and plan: Gram-positive cocci in a set of blood cultures, not staph aureus. It could very well be a contaminant. Recommendations: Continue empiric vancomycin for now. If it comes back as coagulase-negative staph then we will stop the vancomycin. Current Visit: Yes (2) Pneumonia Status: Acute Assessment and plan: Healthcare associated pneumonia in this patient who goes for dialysis, surprisingly. Recommendations: Continue empiric Zosyn. Current Visit: Yes (3) Altered mental status Status: Acute Current Visit: No (4) Diabetes mellitus Status: Chronic Current Visit: No Qualifiers: Chronic kidney disease stage: on chronic dialysis (5) ESRD (end stage renal disease) on dialysis Status: Chronic Current Visit: No (6) HTN (hypertension) Status: Chronic Current Visit: No Qualifiers: Hypertension type: essential hypertension Qualified Code(s): I10 - Essential (primary) hypertension Infectious Disease - PN: Subj Interval history: Patient generally doing better and is out of ICU. He does have an specific complaints. Plan was made to discontinue hemodialysis for now and see how he does. His tunneled dialysis catheter was removed today. No fever for over 24 hours. Infectious Disease Exam (PN) - Constitutional Vitals: Temp Pulse Resp BP Pulse Ox 97.8 F 54 L 18 124/59 98 01/30/17 16:00 01/30/17 16:00 01/30/17 16:00 01/30/17 16:00 01/30/17 16:00 General appearance: no acute distress Exam: General appearance: no acute distress - Eye Eye exam: Present: EOMI. no icterus Pupils: Present: DIEGO - ENT ENT exam: no oral exudates - Respiratory Respiratory exam: vesicular BS, no crepitations or wheezes - Cardiovascular Cardiovascular exam: regular rate and rhythm, no murmurs - GI/Abdominal GI/Abdominal exam: normal bowel sounds, soft, non-tender, no organomegaly or mass - Extremities Exam Extremities exam: no edema - Skin Skin exam: no rash Results - Labs CBC & BMP: 01/30/17 05:44 01/30/17 05:44 Lab Results: I have reviewed the past 24 hour labs (Gram-positive cocci from 1 of 2 sets of blood cultures)
[2017-01-30] MEDS: ONDANSETRON 4 MG/2 ML VIAL IV PRN (18:28)
[2017-01-30] MEDS ORDERED: VANCOMYCIN INJ 1,250 MG in SODIUM CHLORIDE 0.9% 250 ML IV PRN (19:00)
[2017-01-30] MEDS ORDERED: VANCOMYCIN INJ 750 MG in SODIUM CHLORIDE 0.9% 250 ML IV ONE (21:00)
[2017-01-30] MEDS ORDERED: VANCOMYCIN INJ 1,250 MG in SODIUM CHLORIDE 0.9% 250 ML IV ONE (21:00)
[2017-01-30] MEDS: LATANOPROST 0.005% OPH SOLN 2.5 ML BOTTLE BOTH EYES SCH (21:57)
[2017-01-31] MEDS: ONDANSETRON 4 MG/2 ML VIAL IV PRN ×2 (03:09→09:06)
[2017-01-31] MEDS: PIPERACILLIN/TAZOBACTAM 2,250 MG in SODIUM CHLORIDE 0.9% 100 ML IV SCH ×3 (03:13→20:34)
[2017-01-31 06:09] LABS: Basophils % 0.2 % (0.0-0.8); Eosinophils # 0.2 10*3/uL (0.0-0.87); Eosinophils % 2.7 % (0.00-10.9); Hematocrit 26.9 VOL% (42.0-52.0); Hemoglobin 8.9 GM/DL (14.0-18.0); Immature Granulocytes % 0.7 %; Immature Granulocytes Absolute 0.04 #; Lymphocytes # 0.8 10*3/uL (1.4-4.0); Lymphocytes % 15.2 % (21.2-54.2); Mean Corpuscular HGB Conc 33.1 GM/DL (32-36); Mean Corpuscular Hemoglobin 31 PG (27-34); Mean Corpuscular Volume 92.8 FL (87-102); Mean Platelet Volume 12.6 FL (9.6-12.0); Monocytes # 0.4 10*3/uL (0.11-0.8); Monocytes % 7.4 % (1.7-12.7); Neutrophils # 4.1 10*3/uL (1.4-7.4); Neutrophils % 73.8 % (38.7-73.9); Platelet Count 117 T/CUMM (130-400); Red Cell Distribution Width 13.3 % (9.3-17.3); White Blood Count 5.5 T/CUMM (4-12)
[2017-01-31 06:40] LABS: % Iron Saturation 41.1 % (18-50); Calcium 7.5 MG/DL (8.5-10.1); Ferritin 681.8 ng/ml (26-388); Osmolality,Calculated 292.8 MOS/KG (273-304); Potassium 4.7 MMOL/L (3.5-5.1)
[2017-01-31 06:49] LABS: Folate 5.9 NG/ML (5.4-24.0)
[2017-01-31] MEDS: SODIUM BICARBONATE 650 MG TABLET PO SCH ×2 (09:07→20:33)
[2017-01-31] MEDS: MORPHINE ER 30 MG TABLET PO SCH (09:07)
[2017-01-31] MEDS: amLODIPine 10 MG TABLET PO SCH (09:07)
[2017-01-31] MEDS: CINACALCET 30 MG TABLET PO SCH (09:07)
[2017-01-31] MEDS: PANTOPRAZOLE 40 MG TABLET PO SCH (09:07)
[2017-01-31] MEDS: GABAPENTIN 400 MG CAPSULE PO SCH ×3 (09:07→20:33)
[2017-01-31] MEDS: ASPIRIN EC 81 MG TABLET PO SCH (09:08)
[2017-01-31] MEDS: INSULIN LISPRO 100 UNIT/ML SUBCUT SCH ×4 (09:08→21:12)
[2017-01-31] MEDS: CARVEDILOL 25 MG TABLET PO SCH ×2 (09:08→20:33)
--- NOTE | 2017-01-31 11:37 | Infectious Disease Progress ---
Assessment and Plan (1) Positive blood culture Status: Acute Assessment and plan: Gram-positive cocci in a set of blood cultures, not staph aureus. It could very well be a contaminant. Recommendations: Continue empiric vancomycin pending finalization of the blood culture result. Current Visit: Yes (2) Pneumonia Status: Acute Assessment and plan: Healthcare associated pneumonia in this patient who goes for dialysis. Surprisingly the sputum cultures negative. Recommendations: Continue empiric Zosyn. Current Visit: Yes (3) Altered mental status Status: Acute Current Visit: No (4) Diabetes mellitus Status: Chronic Current Visit: No Qualifiers: Chronic kidney disease stage: on chronic dialysis (5) ESRD (end stage renal disease) on dialysis Status: Chronic Current Visit: No (6) HTN (hypertension) Status: Chronic Current Visit: No Qualifiers: Hypertension type: essential hypertension Qualified Code(s): I10 - Essential (primary) hypertension Infectious Disease - PN: Subj Interval history: Patient reports feeling sick today but he could not specify what was wrong. He has not had fever. Denies cough, thinks he vomited today but he did eat his breakfast, no abdominal pain no diarrhea. Infectious Disease Exam (PN) - Constitutional Vitals: Temp Pulse Resp BP Pulse Ox 97.5 F L 57 L 18 153/63 95 01/31/17 11:30 01/31/17 11:30 01/31/17 11:30 01/31/17 11:30 01/31/17 11:30 General appearance: no acute distress Exam: General appearance: no acute distress - Eye Eye exam: Present: EOMI. no icterus Pupils: Present: DIEGO - ENT ENT exam: no oral exudates - Respiratory Respiratory exam: vesicular BS, no crepitations or wheezes - Cardiovascular Cardiovascular exam: regular rate and rhythm, no murmurs - GI/Abdominal GI/Abdominal exam: normal bowel sounds, soft, non-tender, no organomegaly or mass - Extremities Exam Extremities exam: no edema - Skin Skin exam: no rash Results - Labs CBC & BMP: 01/31/17 04:58 01/31/17 04:58 Lab Results: I have reviewed the past 24 hour labs
--- NOTE | 2017-01-31 12:19 | Hospitalist Progress Note ---
Assessment and Plan (1) Bacteremia Status: Acute Assessment and plan: Bacteremia with gram-positive cocci source is not clear but patient had tunneled dialysis catheter could be the likely source the patient is he following. TDC was removed yesterday. He is on vancomycin and pharmacy is managing the dose. I am not sure his current symptoms which are nonspecific has some to do with the bacteremia or due to his advanced renal disease. Based on his lab work he does not require any urgent dialysis but will have nephrology service evaluate that Current Visit: Yes (2) ESRD (end stage renal disease) Status: Chronic Assessment and plan: Patient has CKD 5/end-stage renal disease. Nephrology following Current Visit: Yes (3) Pneumonia Status: Acute Assessment and plan: Patient was noted to have pneumonia with left infiltrate on x-ray sputum cultures negative patient is also on Zosyn in addition to vancomycin Current Visit: Yes (4) Anemia Status: Chronic Assessment and plan: Patient has chronic anemia likely due to chronic disease . His hemoglobin hematocrit is stable Current Visit: No Hospitalist: Subjective Interval history: Patient is afebrile. Tunneled vascular catheter was removed yesterday. Symptomatically patient does state he is not feeling well he cannot specify. He reported nausea vomiting last night and again this morning he is on oral intake was poor according to him. Exam - Constitutional Vitals: Period Temp Pulse Resp BP Sys/Venegas Pulse Ox Last 24 Hr 97.1 F-97.8 F 50-57 16-18 122-153/50-70 92-99 General appearance: no acute distress - Respiratory Respiratory exam: Present: clear to auscultation bilaterally. Absent: rales, rhonchi - Cardiovascular Cardiovascular exam: Present: regular rate and rhythm. Absent: tachycardia - GI/Abdominal GI/Abdominal exam: Present: normal bowel sounds, soft. Absent: distended, tenderness - Extremities Exam Extremities exam: Present: normal inspection. Absent: edema - Neurological Exam Neurological exam: Present: alert Results - Labs CBC & BMP: 01/31/17 04:58 01/31/17 04:58 Lab Results: I have reviewed the past 24 hour labs
--- NOTE | 2017-01-31 14:09 | Nephrology Progress Note ---
Nephrology - PN: Subj Interval history: Patient complains of some nausea and vomiting this morning but is better now. Review of systems pulmonary denies shortness of breath Physical exam general the patient is in no acute distress Assessment/plan 1. Chronic kidney disease stage V-patient's creatinine is around 6.2 mg/dL today he is having some nausea and vomiting and states that food does not taste right to him, the patient was having nausea and vomiting yesterday. I suggested to the patient that the symptoms may be related to his renal impairment and that it might be just be better to restart dialysis at this point. The patient is not interested in doing this. 2. Pneumonia-we will continue antibiotics 3. Hypertension this is controlled Exam (PN)-Nephrology - Vital Signs Vital signs: Period Temp Pulse Resp BP Sys/Venegas Pulse Ox Last 24 Hr 97.1 F-97.8 F 50-57 16-18 122-153/50-70 92-99 - Lab 01/31/17 04:58 01/31/17 04:58 Most recent lab results Calcium 7.5 MG/DL (8.5-10.1) L 01/31/17 04:58 Magnesium 2.0 MG/DL (1.8-2.4) 01/30/17 05:44 Assessment and Plan (1) Renal failure Status: Chronic Assessment and plan: This patient has CKD 4-5, he has not had dialysis in 2 weeks is electrolytes look okay I believe his mental function is around his baseline, his appetite is okay is not having nausea and vomiting. I am inclined at this time to see how he does off of dialysis. Current Visit: No (2) Pneumonia Status: Acute Assessment and plan: I agree with the current antibiotics Current Visit: Yes (3) Anemia Status: Chronic Assessment and plan: Patient's hematocrit is around 29% Current Visit: No (4) Chronic pain Status: Acute Current Visit: No (5) Status post multiple cerebral infarctions Status: Acute Current Visit: No (6) Weakness Status: Acute Current Visit: No (7) Diabetes mellitus Status: Chronic Assessment and plan: Patient denies a history of diabetes Current Visit: No Qualifiers: Chronic kidney disease stage: on chronic dialysis (8) HTN (hypertension) Status: Chronic Assessment and plan: We will continue his present antihypertensives Current Visit: No Qualifiers: Hypertension type: essential hypertension Qualified Code(s): I10 - Essential (primary) hypertension (9) Metabolic acidosis Status: Resolved Assessment and plan: I am going to start him on some sodium bicarbonate Current Visit: No
[2017-01-31] MEDS: LATANOPROST 0.005% OPH SOLN 2.5 ML BOTTLE BOTH EYES SCH (22:04)
[2017-02-01] MEDS: PIPERACILLIN/TAZOBACTAM 2,250 MG in SODIUM CHLORIDE 0.9% 100 ML IV SCH ×3 (03:44→20:56)
[2017-02-01] MEDS: INSULIN LISPRO 100 UNIT/ML SUBCUT SCH ×4 (07:56→20:57)
[2017-02-01] MEDS: GABAPENTIN 400 MG CAPSULE PO SCH ×3 (09:56→20:56)
[2017-02-01] MEDS: CINACALCET 30 MG TABLET PO SCH (09:56)
[2017-02-01] MEDS: amLODIPine 10 MG TABLET PO SCH (09:56)
[2017-02-01] MEDS: SODIUM BICARBONATE 650 MG TABLET PO SCH ×2 (09:56→20:56)
[2017-02-01] MEDS: MORPHINE ER 30 MG TABLET PO SCH (09:56)
[2017-02-01] MEDS: CARVEDILOL 25 MG TABLET PO SCH (09:57)
[2017-02-01] MEDS: PANTOPRAZOLE 40 MG TABLET PO SCH (09:57)
[2017-02-01] MEDS: ASPIRIN EC 81 MG TABLET PO SCH (09:57)
--- NOTE | 2017-02-01 12:01 | Hospitalist Progress Note ---
Assessment and Plan (1) Bacteremia Status: Acute Assessment and plan: Bacteremia with gram-positive cocci not staph aureus. He is on vancomycin and afebrile symptomatically better tunneled dialysis catheter is out still do not know the source showed. And ID following will follow the recommendations. Vancomycin dose is being managed by pharmacy Current Visit: Yes (2) ESRD (end stage renal disease) Status: Chronic Assessment and plan: Patient has CKD 5/end-stage renal disease. Nephrology following. His constitutional symptoms better today but maybe be related to his renal disease. Patient is still feeling to the restart dialysis Current Visit: Yes (3) Pneumonia Status: Acute Assessment and plan: Patient was noted to have pneumonia with left infiltrate on x-ray sputum cultures negative patient is on Levaquin and Zosyn in addition to vancomycin Current Visit: Yes (4) Anemia Status: Chronic Assessment and plan: Patient has chronic stable anemia likely due to renal disease chronic disease . Current Visit: No Hospitalist: Subjective Interval history: She reports feeling better today afebrile he was able to eat some. Exam - Constitutional Vitals: Period Temp Pulse Resp BP Sys/Venegas Pulse Ox Last 24 Hr 97.0 F-97.7 F 53-60 18-20 124-145/51-73 95-99 General appearance: no acute distress - Respiratory Respiratory exam: Present: clear to auscultation bilaterally. Absent: rales, rhonchi - Cardiovascular Cardiovascular exam: Present: regular rate and rhythm. Absent: tachycardia - GI/Abdominal GI/Abdominal exam: Present: normal bowel sounds, soft. Absent: distended, tenderness - Extremities Exam Extremities exam: Present: normal inspection. Absent: edema - Neurological Exam Neurological exam: Present: alert Results - Labs CBC & BMP: 01/31/17 04:58 01/31/17 04:58 Lab Results: I have reviewed the past 24 hour labs
--- NOTE | 2017-02-01 16:00 | Nephrology Progress Note ---
Nephrology - PN: Subj Interval history: Patient denies nausea or vomiting today. Review of systems pulmonary he denies shortness of breath Physical exam general he has no pitting edema, heart rate is 57 Assessment/plan 1. Chronic kidney disease stage V-we will continue to hold patient off of dialysis 2. Metabolic acidosis we will continue bicarb replacement 3. Pneumonia continue antibiotics 4. Hypertension this control 5. Bradycardia-I am going to decrease his beta-juan. Exam (PN)-Nephrology - Vital Signs Vital signs: Period Temp Pulse Resp BP Sys/Venegas Pulse Ox Last 24 Hr 97.0 F-97.7 F 53-60 18-20 121-145/51-73 93-99 - Lab 01/31/17 04:58 01/31/17 04:58 Most recent lab results Calcium 7.5 MG/DL (8.5-10.1) L 01/31/17 04:58 Magnesium 2.0 MG/DL (1.8-2.4) 01/30/17 05:44 Assessment and Plan (1) Renal failure Status: Chronic Assessment and plan: This patient has CKD 4-5, he has not had dialysis in 2 weeks is electrolytes look okay I believe his mental function is around his baseline, his appetite is okay is not having nausea and vomiting. I am inclined at this time to see how he does off of dialysis. Current Visit: No (2) Pneumonia Status: Acute Assessment and plan: I agree with the current antibiotics Current Visit: Yes (3) Anemia Status: Chronic Assessment and plan: Patient's hematocrit is around 29% Current Visit: No (4) Chronic pain Status: Acute Current Visit: No (5) Status post multiple cerebral infarctions Status: Acute Current Visit: No (6) Weakness Status: Acute Current Visit: No (7) Diabetes mellitus Status: Chronic Assessment and plan: Patient denies a history of diabetes Current Visit: No Qualifiers: Chronic kidney disease stage: on chronic dialysis (8) HTN (hypertension) Status: Chronic Assessment and plan: We will continue his present antihypertensives Current Visit: No Qualifiers: Hypertension type: essential hypertension Qualified Code(s): I10 - Essential (primary) hypertension (9) Metabolic acidosis Status: Resolved Assessment and plan: I am going to start him on some sodium bicarbonate Current Visit: No
[2017-02-01] MEDS: LEVOFLOXACIN INJ 500 MG in PREMIX 1 EACH IV SCH (16:30)
--- NOTE | 2017-02-01 17:47 | Infectious Disease Progress ---
Assessment and Plan (1) Positive blood culture Status: Acute Assessment and plan: No 2 of 2 sets of blood cultures positive for gram-positive cocci; could be true infection. Repeat blood cultures negative to date. Recommendations: Continue empiric vancomycin pending finalization of the blood culture result. Current Visit: Yes (2) Pneumonia Status: Acute Assessment and plan: Healthcare associated pneumonia in this patient who goes for dialysis. Recommendations: Continue empiric Zosyn for a few more days. Current Visit: Yes (3) Altered mental status Status: Acute Current Visit: No (4) Diabetes mellitus Status: Chronic Current Visit: No Qualifiers: Chronic kidney disease stage: on chronic dialysis (5) ESRD (end stage renal disease) on dialysis Status: Chronic Current Visit: No (6) HTN (hypertension) Status: Chronic Current Visit: No Qualifiers: Hypertension type: essential hypertension Qualified Code(s): I10 - Essential (primary) hypertension Infectious Disease - PN: Subj Interval history: Patient event today, no fever, eating well. Infectious Disease Exam (PN) - Constitutional Vitals: Temp Pulse Resp BP Pulse Ox 97.4 F L 53 L 18 121/60 93 L 02/01/17 15:29 02/01/17 15:29 02/01/17 15:29 02/01/17 15:29 02/01/17 15:29 General appearance: no acute distress Exam: General appearance: no acute distress, sitting up watching TV - Eye Eye exam: Present: EOMI. no icterus Pupils: Present: DIEGO - ENT ENT exam: no oral exudates - Respiratory Respiratory exam: vesicular BS, no crepitations or wheezes - Cardiovascular Cardiovascular exam: regular rate and rhythm, no murmurs - GI/Abdominal GI/Abdominal exam: normal bowel sounds, soft, non-tender, no organomegaly or mass - Extremities Exam Extremities exam: no edema - Skin Skin exam: no rash Results - Labs CBC & BMP: 01/31/17 04:58 01/31/17 04:58 Lab Results: I have reviewed the past 24 hour labs (Second blood culture came up positive for gram-positive cocci)
[2017-02-01] MEDS: CARVEDILOL 12.5 MG TABLET PO SCH (20:56)
[2017-02-01] MEDS: LATANOPROST 0.005% OPH SOLN 2.5 ML BOTTLE BOTH EYES SCH (20:57)
[2017-02-02] MEDS: PIPERACILLIN/TAZOBACTAM 2,250 MG in SODIUM CHLORIDE 0.9% 100 ML IV SCH ×3 (03:57→22:28)
[2017-02-02] MEDS: ASPIRIN EC 81 MG TABLET PO SCH (09:36)
[2017-02-02] MEDS: PANTOPRAZOLE 40 MG TABLET PO SCH (09:36)
[2017-02-02] MEDS: SODIUM BICARBONATE 650 MG TABLET PO SCH ×2 (09:37→22:29)
[2017-02-02] MEDS: CARVEDILOL 12.5 MG TABLET PO SCH ×2 (09:37→22:29)
[2017-02-02] MEDS: INSULIN LISPRO 100 UNIT/ML SUBCUT SCH ×4 (09:37→22:56)
[2017-02-02] MEDS: GABAPENTIN 400 MG CAPSULE PO SCH ×3 (09:37→22:29)
[2017-02-02] MEDS: CINACALCET 30 MG TABLET PO SCH (09:37)
[2017-02-02] MEDS: MORPHINE ER 30 MG TABLET PO SCH (09:37)
[2017-02-02] MEDS: amLODIPine 10 MG TABLET PO SCH (09:37)
--- NOTE | 2017-02-02 10:52 | Nephrology Progress Note ---
Nephrology - PN: Subj Interval history: Patient denies nausea or vomiting this morning. Review of systems pulmonary denies shortness of breath Physical exam general the patient is in no acute distress Assessment/plan 1. Chronic kidney disease stage V-this patient is asymptomatic from a uremic standpoint at this time. The patient had been to dialysis about 3 times in the past month and a half. On admission here the patient was without dialysis for about 2 weeks and had a creatinine of around 5.8 mg/dL. His potassium and bicarbonate were acceptable at that time. Due to his noncompliance with dialysis and his desire to forego further dialysis presently , we are holding his dialysis therapy. I will plan on seeing the patient back in a couple weeks post discharge with the BMP. If patient is to remain through the weekend I will check a BMP through the weekend. 2. Febrile illness associated with hypotension-this patient had MRSA grow out of 2 of 2 blood cultures his repeat blood cultures are negative thus far he continues on vancomycin. The patient's tunneled dialysis catheter is now out. 3. Metabolic acidosis-we will continue sodium bicarbonate 4. Possible pneumonia-on admission patient had a chest x-ray that showed a lower lobe infiltrate, will continue present antibiotics Exam (PN)-Nephrology - Vital Signs Vital signs: Period Temp Pulse Resp BP Sys/Venegas Pulse Ox Last 24 Hr 96.8 F-98.8 F 51-87 18-20 116-134/60-73 93-98 - Lab 01/31/17 04:58 01/31/17 04:58 Most recent lab results Calcium 7.5 MG/DL (8.5-10.1) L 01/31/17 04:58 Magnesium 2.0 MG/DL (1.8-2.4) 01/30/17 05:44 Assessment and Plan (1) Renal failure Status: Chronic Assessment and plan: This patient has CKD 4-5, he has not had dialysis in 2 weeks is electrolytes look okay I believe his mental function is around his baseline, his appetite is okay is not having nausea and vomiting. I am inclined at this time to see how he does off of dialysis. Current Visit: No (2) Pneumonia Status: Acute Assessment and plan: I agree with the current antibiotics Current Visit: Yes (3) Anemia Status: Chronic Assessment and plan: Patient's hematocrit is around 29% Current Visit: No (4) Chronic pain Status: Acute Current Visit: No (5) Status post multiple cerebral infarctions Status: Acute Current Visit: No (6) Weakness Status: Acute Current Visit: No (7) Diabetes mellitus Status: Chronic Assessment and plan: Patient denies a history of diabetes Current Visit: No Qualifiers: Chronic kidney disease stage: on chronic dialysis (8) HTN (hypertension) Status: Chronic Assessment and plan: We will continue his present antihypertensives Current Visit: No Qualifiers: Hypertension type: essential hypertension Qualified Code(s): I10 - Essential (primary) hypertension (9) Metabolic acidosis Status: Resolved Assessment and plan: I am going to start him on some sodium bicarbonate Current Visit: No Specialty Discharge - Follow Up or Referrals Follow up with: Juanjose Doherty MD [Physician] - 03/13/17 10:15 am (BRING ALL MEDICNES IN ORIGINAL BOTTLE)
--- NOTE | 2017-02-02 12:41 | Infectious Disease Progress ---
Assessment and Plan (1) Positive blood culture Status: Acute Assessment and plan: 2 of 2 sets of blood cultures positive for gram-positive cocci; possibly true infection. Repeat blood cultures negative to date. Recommendations: Continue empiric vancomycin pending finalization of the blood culture result. I called them but they still do not have the resulted. I think patient needs to stay until we see what it is to decide whether or not we need can complete 14 days of therapy. If it is the same organism in both sets of blood cultures he will need to continue IV antibiotic therapy until February 13. Current Visit: Yes (2) Pneumonia Status: Acute Assessment and plan: Healthcare associated pneumonia. Patient clinically improved significantly since admission. Recommendations: Continue empiric Zosyn for 1 more day Current Visit: Yes (3) Altered mental status Status: Acute Current Visit: No (4) Diabetes mellitus Status: Chronic Current Visit: No Qualifiers: Chronic kidney disease stage: on chronic dialysis (5) ESRD (end stage renal disease) on dialysis Status: Chronic Current Visit: No (6) HTN (hypertension) Status: Chronic Current Visit: No Qualifiers: Hypertension type: essential hypertension Qualified Code(s): I10 - Essential (primary) hypertension Infectious Disease - PN: Subj Interval history: Doing well, afebrile, wants to go home. Infectious Disease Exam (PN) - Constitutional Vitals: Temp Pulse Resp BP Pulse Ox 97.5 F L 57 L 18 127/54 95 02/02/17 11:41 02/02/17 11:41 02/02/17 11:41 02/02/17 11:41 02/02/17 11:41 General appearance: no acute distress Exam: General appearance: no acute distress - Eye Eye exam: Present: EOMI. no icterus Pupils: Present: DIEGO - ENT ENT exam: no oral exudates - GI/Abdominal GI/Abdominal exam: normal bowel sounds, soft, non-tender - Extremities Exam Extremities exam: no edema - Skin Skin exam: no rash Results - Labs CBC & BMP: 01/31/17 04:58 01/31/17 04:58 Lab Results: I have reviewed the past 24 hour labs (ID of GPC's and blood still pending) Specialty Discharge - Follow Up or Referrals Follow up with: Juanjose Doherty MD [Physician] - 03/13/17 10:15 am (BRING ALL MEDICNES IN ORIGINAL BOTTLE)
--- NOTE | 2017-02-02 13:24 | Hospitalist Progress Note ---
Assessment and Plan (1) Renal failure Status: Chronic Assessment and plan: Dialysis has been [facility]. BMP in a.m. Current Visit: No Qualifiers: Chronic kidney disease stage: stage 5, not on chronic dialysis (2) Fever Status: Resolved Current Visit: No (3) Anemia Status: Chronic Current Visit: No (4) Diabetes mellitus Status: Chronic Current Visit: No Qualifiers: Chronic kidney disease stage: on chronic dialysis (5) Stroke Status: Acute Current Visit: No Qualifiers: CVA mechanism: unspecified Qualified Code(s): I63.9 - Cerebral infarction, unspecified (6) Positive blood culture Status: Acute Assessment and plan: Awaiting further blood cultures to determine antibiotic treatment plan. Current Visit: Yes Hospitalist: Subjective Interval history: The patient is resting comfortably. He is eager to go home. However blood cultures are pending to make a determination as to how long the gentleman would need further antibiotics. Therefore he will stay through the weekend to follow- up on the cultures. He is now off dialysis. BMP in a.m. Exam - Constitutional Vitals: Period Temp Pulse Resp BP Sys/Venegas Pulse Ox Last 24 Hr 96.8 F-98.8 F 51-87 18-20 116-134/54-73 93-98 General appearance: normal weight - Head Head exam: Present: normal inspection - Eye Eye exam: Present: EOMI - Respiratory Respiratory exam: Present: clear to auscultation bilaterally - Cardiovascular Cardiovascular exam: Present: regular rate and rhythm - GI/Abdominal GI/Abdominal exam: Present: normal bowel sounds - Extremities Exam Extremities exam: Present: normal inspection - Neurological Exam Neurological exam: Present: alert, oriented X3 - Psychiatric Psychiatric exam: Present: normal affect Results - Labs CBC & BMP: 01/31/17 04:58 01/31/17 04:58 Specialty Discharge - Follow Up or Referrals Follow up with: Juanjose Doherty MD [Physician] - 03/13/17 10:15 am (BRING ALL MEDICNES IN ORIGINAL BOTTLE)
[2017-02-02] MEDS: LATANOPROST 0.005% OPH SOLN 2.5 ML BOTTLE BOTH EYES SCH (22:30)
[2017-02-03] MEDS: PIPERACILLIN/TAZOBACTAM 2,250 MG in SODIUM CHLORIDE 0.9% 100 ML IV SCH ×3 (03:50→20:17)
[2017-02-03 05:39] LABS: Calcium 7.2 MG/DL (8.5-10.1); Osmolality,Calculated 287.1 MOS/KG (273-304); Potassium 4.8 MMOL/L (3.5-5.1)
[2017-02-03] MEDS ORDERED: VANCOMYCIN INJ 1,250 MG in SODIUM CHLORIDE 0.9% 250 ML IV ONE (09:00)
[2017-02-03] MEDS: amLODIPine 10 MG TABLET PO SCH (09:11)
[2017-02-03] MEDS: CINACALCET 30 MG TABLET PO SCH (09:11)
[2017-02-03] MEDS: GABAPENTIN 400 MG CAPSULE PO SCH ×3 (09:11→20:17)
[2017-02-03] MEDS: SODIUM BICARBONATE 650 MG TABLET PO SCH ×2 (09:11→20:17)
[2017-02-03] MEDS: MORPHINE ER 30 MG TABLET PO SCH (09:12)
[2017-02-03] MEDS: PANTOPRAZOLE 40 MG TABLET PO SCH (09:12)
[2017-02-03] MEDS: CARVEDILOL 12.5 MG TABLET PO SCH ×2 (09:12→20:19)
[2017-02-03] MEDS: ASPIRIN EC 81 MG TABLET PO SCH (09:12)
[2017-02-03] MEDS: INSULIN LISPRO 100 UNIT/ML SUBCUT SCH ×4 (11:41→21:19)
--- NOTE | 2017-02-03 13:42 | Discharge Summary ---
<Manny Stern - Last Filed: 02/03/17 13:49> Hospital Course - Hospital Course Hospital Course: 56 y/o [place] male presenting to the ED by EMS from home for further evaluation of Altered Mental Status and fever 102.2, and hypertensive. Noted to have missed his dialysis for 2 weeks. PMHx significant for HTN, CVA, NIDDM, Renal Failure, Dialysis, Chronic Back Pain, and Arthritis. Patient was admitted for pneumonia sepsis and CKD and noncompliance -missing dialysis x2 weeks. Preliminary Positive blood cultures for gram-positive; and Infectious disease was consulted and empiric antibiotics were started. After second final cultures negative for staph, patient antibiotics were discontinued. and can be discharged. Patient was seen by nephrology and Patient refused dialysis, continue to monitor labs and bicarb replacement. He will need to follow up 1- 2 weeks with nephrology after discharge. Recommendations: Patient will be discharged home with home health services. Patient will need to follow-up with Nephrology in about 2 weeks after discharge Patient will need to follow-up with Neurology on 03/13/17 at 10:15 a.m. (bring all medicines in original bottle) Patient will need to follow-up with Primary [facility] Physician at [facility]. Specialty Discharge - Follow Up or Referrals Follow up with: Juanjose Doherty MD [Physician] - 03/13/17 10:15 am (BRING ALL MEDICNES IN ORIGINAL BOTTLE) Yasmany Olmstead MD [Physician] - (2 week appt. with BMP) Discharge Plan - Discharge Data Disposition: Home Health Service Condition at Discharge: Stable Discharge Diet: other (Renal diabetic heart healthy diet) Activity: resume usual activities as tolerated Hygiene: no restrictions Weight Bearing at Discharge: weight bear as tolerated Driving: not until seen by doctor Contact your physician if you experience:: fever over 101, Nausea/Vomiting, Shortness of breath, pain uncontrolled by pain medications - Discharge Medications Continue amLODIPine [Norvasc] 10 mg PO DAILY Gabapentin Cap/Tab [Neurontin Cap/Tab] 800 mg PO TID Carvedilol 25 mg PO BID Aspirin EC Tab 81 mg PO DAILY #30 tablet Cinacalcet [Sensipar] 30 mg PO DAILY Latanoprost [Latanoprost 0.005 % Oph Soln] 1 drop BOTH EYES BEDTIME Morphine Sulfate [Morphine Sulfate ER] 30 mg PO DAILY - Follow Up or Referral Follow Up: Juanjose Doherty MD [Physician] - 03/13/17 10:15 am (BRING ALL MEDICNES IN ORIGINAL BOTTLE) Yasmany Olmstead MD [Physician] - (2 week appt. with BMP) - Forms/Instructions Instructions: End-Stage Kidney Disease (DC) Exam - Constitutional Vitals: Period Temp Pulse Resp BP Sys/Venegas Pulse Ox Last 24 Hr 97.0 F-98.1 F 54-66 16-18 125-148/51-71 94-96 General appearance: over weight - Head Head exam: Present: normocephalic, atraumatic - Eye Eye exam: Present: EOMI - ENT ENT exam: Present: normal exam - Neck Neck exam: Present: normal inspection - Respiratory Respiratory exam: Present: clear to auscultation bilaterally - Cardiovascular Cardiovascular exam: Present: regular rate and rhythm - GI/Abdominal GI/Abdominal exam: Present: normal bowel sounds, soft - Extremities Exam Extremities exam: Present: normal inspection, other (Can move all 4 extremities command) - Neurological Exam Neurological exam: Present: alert, oriented X3, CN II-XII intact - Psychiatric Psychiatric exam: Present: normal affect, normal mood, other (Patient is asking to go home) - Skin Skin exam: Present: normal color, warm, dry Discharge Results Procedures and tests throughout hospitalization: Pending Orders 01/28/17 12:18 Blood Culture Stat 01/30/17 15:18 Blood Culture Stat 02/01/17 03:35 Occult Blood, Stool Labs on day of discharge: Labs from last 24 hours 02/03/17 02/03/17 02/03/17 11:56 06:33 04:39 Sodium 135 L Potassium 4.8 Chloride 103 Carbon Dioxide 20 L Anion Gap 16.8 H BUN 66 H Creatinine 7.80 H GFR Calculation 8 BUN/Creatinine Ratio 8.00 Glucose 79 POC Glucose 96 89 Calculated Osmolality 287.1 Calcium 7.2 L 02/02/17 02/02/17 02/02/17 22:58 16:08 07:19 Sodium Potassium Chloride Carbon Dioxide Anion Gap BUN Creatinine GFR Calculation BUN/Creatinine Ratio Glucose POC Glucose 108 H 134 H 87 Calculated Osmolality Calcium Preliminary micro results at discharge 01/30/17 15:18 Blood Culture - Preliminary Blood No growth at 3 days 01/30/17 15:12 Blood Culture - Preliminary Blood No growth at 3 days 01/28/17 12:18 Blood Culture - Preliminary Blood Gram Positive Cocci DS: Provider Date of admission: 01/28/17 14:30 Primary care physician: Sangita Santana MD Attending physician on admission: Alexander Olivera MD Consults: 01/28/17 16:07 Consult to Pharmacy [CONS] Routine Reason for Pharmacy Consult: Adjust Meds Renal Funct Consult to Physician [CONS] Routine Comment: Consulting Provider: Keshawn Amezquita Jr. Consult to Specialist Group: Nephrology Consult Notification Comment: notified Dr Olmstead of consult via phone at 1750 on . [place] [id number] 01/[address] amezquita in office today & informed her pt has not been dialyzed in 2 weeks per records 01/28/17 16:50 Consult to Physician [CONS] Routine Comment: pneumonia, ? infected HD catheter Consulting Provider: Shira Richardson Consulting Provider Notified: No When should Consulting Provider be notified: In am Consult to Specialist Group: Infectious Disease When should Consulting Provider be notified: In am Person Notified: severino Date Notified: 01/29/17 Time Notified: 09:35 01/28/17 17:24 Consult to Dietitian [CONS] Routine Reason for Dietitian: Diet Instruction 01/29/17 10:37 Consult to Pharmacy [CONS] Routine Reason for Pharmacy Consult: Dose/Manage Vancomycin 01/30/17 08:16 Consult to Physician [CONS] Routine Comment: General Surgery to remove tunneled dialysis cath. Consulting Provider: Eric Wallis Person Notified: IQRA Date Notified: 01/30/17 Time Notified: 10:06 02/03/17 14:28 Consult to Case Mgmt/Social Srvs [CONS] Routine Reason for Case Mgmt/Social Srvs: Home Health Discharging clinician: Manny Stern MD <Kelly Dong - Last Filed: 02/03/17 15:37> Discharge Results - Imaging and Cardiology Procedure: Chest x-ray: report reviewed by me (01/28/17:left lower lung field pneumonia), CT: report reviewed by me (Head: Prominence of the ventricles and sulci for the patient's age;Remote lacunar infarcts, and remote left occipital infarct;mild paranasal sinus disease)
--- NOTE | 2017-02-03 16:18 | Nephrology Progress Note ---
Nephrology - PN: Subj Interval history: Patient is resting. Has a tunnel catheter has been removed there is easy from the site. Have asked surgery to come and evaluate. No fevers or chills. Patient is scheduled to be discharged sometime today. Exam (PN)-Nephrology - Vital Signs Vital signs: Period Temp Pulse Resp BP Sys/Venegas Pulse Ox Last 24 Hr 97.0 F-98.1 F 52-66 12-18 114-148/51-79 95-96 - General Appearance General appearance: well-developed, well-nourished EENT: ATNC Neck: supple Respiratory: clear Cardiology: no edema, regular rate, regular rhythm Gastrointestinal: normoactive bowel sounds, no tenderness Integumentary: no rash Musculoskeletal: no clubbing - Lab 01/31/17 04:58 02/03/17 04:39 Most recent lab results Calcium 7.2 MG/DL (8.5-10.1) L 02/03/17 04:39 Magnesium 2.0 MG/DL (1.8-2.4) 01/30/17 05:44 Assessment and Plan (1) Renal failure Status: Chronic Assessment and plan: Dialysis has been held Current Visit: No Qualifiers: Chronic kidney disease stage: stage 5, not on chronic dialysis (2) Fever Status: Resolved Current Visit: No (3) Anemia Status: Chronic Current Visit: No (4) Diabetes mellitus Status: Chronic Current Visit: No Qualifiers: Chronic kidney disease stage: on chronic dialysis (5) Stroke Status: Acute Current Visit: No Qualifiers: CVA mechanism: unspecified Qualified Code(s): I63.9 - Cerebral infarction, unspecified (6) Positive blood culture Status: Acute Assessment and plan: Awaiting further blood cultures to determine antibiotic treatment plan. Current Visit: Yes Specialty Discharge - Follow Up or Referrals Follow up with: Juanjose Doherty MD [Physician] - 03/13/17 10:15 am (BRING ALL MEDICNES IN ORIGINAL BOTTLE) Yasmany Olmstead MD [Physician] - (2 week appt. with BMP)
[2017-02-03] MEDS: LEVOFLOXACIN INJ 500 MG in PREMIX 1 EACH IV SCH (18:02)
[2017-02-03] MEDS: LATANOPROST 0.005% OPH SOLN 2.5 ML BOTTLE BOTH EYES SCH (20:18)
[2017-02-04] MEDS: PIPERACILLIN/TAZOBACTAM 2,250 MG in SODIUM CHLORIDE 0.9% 100 ML IV SCH ×2 (03:35→13:12)
[2017-02-04] MEDS: CINACALCET 30 MG TABLET PO SCH (09:43)
[2017-02-04] MEDS: amLODIPine 10 MG TABLET PO SCH (09:43)
[2017-02-04] MEDS: SODIUM BICARBONATE 650 MG TABLET PO SCH (09:43)
[2017-02-04] MEDS: GABAPENTIN 400 MG CAPSULE PO SCH (09:43)
[2017-02-04] MEDS: MORPHINE ER 30 MG TABLET PO SCH (09:43)
[2017-02-04] MEDS: PANTOPRAZOLE 40 MG TABLET PO SCH (09:44)
[2017-02-04] MEDS: ASPIRIN EC 81 MG TABLET PO SCH (09:44)
[2017-02-04] MEDS: CARVEDILOL 12.5 MG TABLET PO SCH (09:44)
[2017-02-04] MEDS: INSULIN LISPRO 100 UNIT/ML SUBCUT SCH ×2 (09:44→13:12)
--- NOTE | 2017-02-04 10:44 | Nephrology Progress Note ---
Nephrology - PN: Subj Interval history: The patient is resting comfortably. Tunnel catheter is removed. No further bleeding from the catheter site. There was question from the family about other renal replacement therapies. However daughter is not at the bedside during my visit. Have given instructions to nursing staff should family return I would be available to answer any other questions. Exam (PN)-Nephrology - Vital Signs Vital signs: Period Temp Pulse Resp BP Sys/Venegas Pulse Ox Last 24 Hr 96.6 F-98.1 F 52-63 12-20 114-142/49-82 93-96 - General Appearance General appearance: well-developed, fatigue, frail EENT: ATNC Neck: supple Respiratory: clear Cardiology: regular rate, regular rhythm Gastrointestinal: normoactive bowel sounds, no tenderness Integumentary: no rash Neurologic: alert and oriented x3 - Lab 01/31/17 04:58 02/03/17 04:39 Most recent lab results Calcium 7.2 MG/DL (8.5-10.1) L 02/03/17 04:39 Magnesium 2.0 MG/DL (1.8-2.4) 01/30/17 05:44 Assessment and Plan (1) Renal failure Status: Chronic Assessment and plan: Dialysis has been held Current Visit: No Qualifiers: Chronic kidney disease stage: stage 5, not on chronic dialysis (2) Anemia Status: Chronic Current Visit: No (3) Diabetes mellitus Status: Chronic Current Visit: No Qualifiers: Chronic kidney disease stage: on chronic dialysis (4) Stroke Status: Acute Current Visit: No Qualifiers: CVA mechanism: unspecified Qualified Code(s): I63.9 - Cerebral infarction, unspecified (5) Positive blood culture Status: Acute Assessment and plan: The patient has been adjusted to p.o. antibiotics as a result of blood cultures. Current Visit: Yes Specialty Discharge - Follow Up or Referrals Follow up with: Juanjose Doherty MD [Physician] - 03/13/17 10:15 am (BRING ALL MEDICNES IN ORIGINAL BOTTLE) Yasmany Olmstead MD [Physician] - (2 week appt. with BMP)
[2017-02-04 12:57] VITALS: BP 127/65
== END 2017-02-04 13:30 | disposition home health service (06) | DRG 871 ==
LOC: EDUNIT# → N.ED 12:07 → N.EDINP 14:30 → SUATTDRO 14:30 → N.EDINP 15:50 → N.CC 16:04 → N.5E 01-29 13:33
PROVIDERS: ADMIT Internal Medicine; ATTEND Internal Medicine Infectious Disease

== ENCOUNTER 2017-07-17 17:17 | Inpatient (IN) ==
[2017-07-17] MEDS ORDERED: ONDANSETRON 4 MG/2 ML VIAL IV PRN (22:21)
[2017-07-17] MEDS ORDERED: DEXTROSE 50% 25 GM/50 ML VIAL IV PRN (22:49)
[2017-07-17] MEDS ORDERED: GLUCAGON 1 MG VIAL IM PRN (22:49)
[2017-07-17] MEDS ORDERED: CALCIUM GLUCONATE 2,000 MG in SODIUM CHLORIDE 0.9% 100 ML IV ONE (22:57)
[2017-07-18] MEDS: ENOXAPARIN 30 MG/0.3 ML SYRINGE SUBCUT SCH (00:09)
[2017-07-18] MEDS: INSULIN REGULAR 100 UNIT/ML SUBCUT SCH ×4 (01:20→18:41)
[2017-07-18 06:51] LABS: Basophils % 0.3 % (0.0-0.8); Eosinophils # 0.2 10*3/uL (0.0-0.87); Eosinophils % 6.5 % (0.00-10.9); Hematocrit 24.5 VOL% (42.0-52.0); Hemoglobin 7.9 GM/DL (14.0-18.0); Immature Granulocytes % 0.3 %; Immature Granulocytes Absolute 0.01 #; Lymphocytes # 0.7 10*3/uL (1.4-4.0); Lymphocytes % 22.1 % (21.2-54.2); Mean Corpuscular HGB Conc 32.2 GM/DL (32-36); Mean Corpuscular Hemoglobin 31 PG (27-34); Mean Corpuscular Volume 96.8 FL (87-102); Mean Platelet Volume 11.4 FL (9.6-12.0); Monocytes # 0.3 10*3/uL (0.11-0.8); Monocytes % 8.5 % (1.7-12.7); Neutrophils # 1.9 10*3/uL (1.4-7.4); Neutrophils % 62.3 % (38.7-73.9); Platelet Count 100 T/CUMM (130-400); Red Blood Count 2.53 MC/CUMM (3.8-5.5); Red Cell Distribution Width 15.4 % (9.3-17.3); White Blood Count 3.1 T/CUMM (4-12)
[2017-07-18 07:21] LABS: Albumin 3.1 G/DL (3.4-5.0); Bilirubin,Total 0.7 MG/DL (0.2-1.0); Calcium 6.4 MG/DL (8.5-10.1); Magnesium 1.9 MG/DL (1.8-2.4); Potassium 4.4 MMOL/L (3.5-5.1); Risk Ratio 2.17; Total Protein 5.6 G/DL (6.4-8.3); VLDL CHOLESTEROL 14.6 MG/DL
[2017-07-18] MEDS ORDERED: DOCUSATE SODIUM 100 MG CAPSULE PO SCH (09:00)
[2017-07-18] MEDS: PANTOPRAZOLE 40 MG TABLET PO SCH (09:27)
[2017-07-18 13:47] LABS: Hepatitis A Ab IgM Quant 0.08 Index; Hepatitis A Ab IgM Result Negative (Negative); Hepatitis B Core IgM Quant 0.06 Index; Hepatitis B Core IgM Result Negative (Negative); Hepatitis B Surface Ag Quant 0.19 Index; Hepatitis B Surface Ag Result Negative (Negative); Hepatitis C Virus Ab Quant 0.16 Index; Hepatitis C Virus Ab Result Negative (Negative)
[2017-07-18] MEDS ORDERED: EPOETIN ALFA 10,000 UNIT/1 ML VIAL SUBCUT SCH (15:30)
[2017-07-18] MEDS: MORPHINE 2 MG/1 ML SYRINGE IV PRN (18:29)
[2017-07-19] MEDS: MORPHINE 2 MG/1 ML SYRINGE IV PRN ×3 (00:12→13:30)
[2017-07-19] MEDS: ENOXAPARIN 30 MG/0.3 ML SYRINGE SUBCUT SCH ×2 (00:15→22:31)
[2017-07-19] MEDS: INSULIN REGULAR 100 UNIT/ML SUBCUT SCH ×4 (01:12→18:28)
[2017-07-19] MEDS: PANTOPRAZOLE 40 MG TABLET PO SCH (08:27)
[2017-07-20] MEDS: INSULIN REGULAR 100 UNIT/ML SUBCUT SCH ×4 (00:42→19:23)
[2017-07-20] MEDS: PANTOPRAZOLE 40 MG TABLET PO SCH (08:31)
[2017-07-20] MEDS: MORPHINE 2 MG/1 ML SYRINGE IV PRN (14:39)
[2017-07-20] MEDS ORDERED: LIDOCAINE 2% TOP JELLY 5 ML TUBE TOP ONE (17:58)
[2017-07-20] MEDS ORDERED: LORazepam 2 MG/1 ML VIAL ONE (18:05)
[2017-07-20] MEDS: ENOXAPARIN 30 MG/0.3 ML SYRINGE SUBCUT SCH (23:30)
[2017-07-21] MEDS: INSULIN REGULAR 100 UNIT/ML SUBCUT SCH ×4 (00:35→17:01)
[2017-07-21] MEDS: MORPHINE 2 MG/1 ML SYRINGE IV PRN ×4 (01:18→19:33)
[2017-07-21] MEDS: PANTOPRAZOLE 40 MG TABLET PO SCH (12:08)
[2017-07-21] MEDS: ENOXAPARIN 30 MG/0.3 ML SYRINGE SUBCUT SCH (21:39)
[2017-07-21] MEDS: guaiFENesin 200 MG/10 ML UDCUP PO PRN (23:19)
[2017-07-22] MEDS: INSULIN REGULAR 100 UNIT/ML SUBCUT SCH ×4 (06:22→21:04)
[2017-07-22] MEDS: MORPHINE 2 MG/1 ML SYRINGE IV PRN (07:39)
[2017-07-22] MEDS: ACETAMINOPHEN 325 MG TABLET PO PRN ×2 (07:47→17:11)
[2017-07-22] MEDS: PANTOPRAZOLE 40 MG TABLET PO SCH (08:42)
[2017-07-22] MEDS: PIPERACILLIN/TAZOBACTAM 3,375 MG in SODIUM CHLORIDE 0.9% 100 ML IV SCH ×2 (08:58→17:13)
[2017-07-22 10:36] LABS: Basophils % 0.4 % (0.0-0.8); Hematocrit 30.5 VOL% (42.0-52.0); Hemoglobin 9.4 GM/DL (14.0-18.0); Immature Granulocytes % 0.8 %; Immature Granulocytes Absolute 0.04 #; Lymphocytes # 0.5 10*3/uL (1.4-4.0); Lymphocytes % 8.9 % (21.2-54.2); Mean Corpuscular HGB Conc 30.8 GM/DL (32-36); Mean Corpuscular Hemoglobin 31 PG (27-34); Mean Platelet Volume 11.5 FL (9.6-12.0); Monocytes # 0.4 10*3/uL (0.11-0.8); Monocytes % 7.9 % (1.7-12.7); NRBC # 0.02 10*3/uL; Neutrophils # 4.2 10*3/uL (1.4-7.4); Platelet Count 124 T/CUMM (130-400); Red Blood Count 3.05 MC/CUMM (3.8-5.5); Red Cell Distribution Width 14.8 % (9.3-17.3); White Blood Count 5.1 T/CUMM (4-12)
[2017-07-22] MEDS: ALBUTEROL/IPRATROPIUM 3 ML NEB RESP TX SCH ×3 (11:05→20:11)
[2017-07-22] MEDS: SORBITOL 30 ML BOTTLE PO SCH (22:10)
[2017-07-22] MEDS: ENOXAPARIN 30 MG/0.3 ML SYRINGE SUBCUT SCH (22:10)
[2017-07-23] MEDS: PIPERACILLIN/TAZOBACTAM 3,375 MG in SODIUM CHLORIDE 0.9% 100 ML IV SCH ×3 (00:27→15:56)
[2017-07-23] MEDS: INSULIN REGULAR 100 UNIT/ML SUBCUT SCH ×4 (00:30→18:21)
[2017-07-23] MEDS: ALBUTEROL/IPRATROPIUM 3 ML NEB RESP TX SCH ×6 (01:05→20:37)
[2017-07-23] MEDS: ACETAMINOPHEN 325 MG TABLET PO PRN (02:14)
[2017-07-23] MEDS: guaiFENesin 200 MG/10 ML UDCUP PO PRN ×2 (02:14→09:01)
[2017-07-23 06:04] LABS: Basophils % 0.4 % (0.0-0.8); Hematocrit 25.4 VOL% (42.0-52.0); Hemoglobin 8.2 GM/DL (14.0-18.0); Immature Granulocytes % 0.7 %; Immature Granulocytes Absolute 0.03 #; Lymphocytes # 0.6 10*3/uL (1.4-4.0); Mean Corpuscular HGB Conc 32.3 GM/DL (32-36); Mean Corpuscular Hemoglobin 32 PG (27-34); Mean Corpuscular Volume 97.7 FL (87-102); Mean Platelet Volume 11.3 FL (9.6-12.0); Monocytes # 0.4 10*3/uL (0.11-0.8); Monocytes % 8.1 % (1.7-12.7); Neutrophils # 3.5 10*3/uL (1.4-7.4); Neutrophils % 76.8 % (38.7-73.9); Platelet Count 107 T/CUMM (130-400); Red Cell Distribution Width 14.7 % (9.3-17.3); White Blood Count 4.6 T/CUMM (4-12)
[2017-07-23 06:38] LABS: Albumin 2.9 G/DL (3.4-5.0); Calcium 6.6 MG/DL (8.5-10.1); Magnesium 1.7 MG/DL (1.8-2.4); Osmolality,Calculated 299.1 MOS/KG (273-304); Potassium 4.4 MMOL/L (3.5-5.1); Total Protein 5.5 G/DL (6.4-8.3)
[2017-07-23] MEDS: PANTOPRAZOLE 40 MG TABLET PO SCH (09:00)
[2017-07-23] MEDS: SORBITOL 30 ML BOTTLE PO SCH (09:01)
[2017-07-23] MEDS: MORPHINE 2 MG/1 ML SYRINGE IV PRN (21:14)
[2017-07-23] MEDS: ENOXAPARIN 30 MG/0.3 ML SYRINGE SUBCUT SCH ×2 (21:14)
[2017-07-24] MEDS: INSULIN REGULAR 100 UNIT/ML SUBCUT SCH ×4 (00:14→18:24)
[2017-07-24] MEDS: ALBUTEROL/IPRATROPIUM 3 ML NEB RESP TX SCH ×5 (01:13→15:05)
[2017-07-24] MEDS: MORPHINE 2 MG/1 ML SYRINGE IV PRN ×2 (02:22→06:47)
[2017-07-24] MEDS: PIPERACILLIN/TAZOBACTAM 3,375 MG in SODIUM CHLORIDE 0.9% 100 ML IV SCH ×3 (02:22→16:39)
[2017-07-24] MEDS: SORBITOL 30 ML BOTTLE PO SCH (08:51)
[2017-07-24] MEDS: PANTOPRAZOLE 40 MG TABLET PO SCH (08:51)
[2017-07-24 17:23] VITALS: BP 141/58
== END 2017-07-24 19:30 | disposition home or self-care (01) | DRG 640 ==
LOC: SUATTDRO 20:10 → N.5E 20:10
PROVIDERS: ADMIT Internal Medicine Geriatric Medicine

== ENCOUNTER 2017-08-14 18:54 | Inpatient (IN) ==
[2017-08-14] MEDS ORDERED: ONDANSETRON 4 MG/2 ML VIAL IV PRN (22:34)
[2017-08-15 06:11] LABS: Basophils % 0.4 % (0.0-0.8); Eosinophils # 0.1 10*3/uL (0.0-0.87); Eosinophils % 2.5 % (0.00-10.9); Hemoglobin 9.9 GM/DL (14.0-18.0); Immature Granulocytes % 1.3 %; Immature Granulocytes Absolute 0.07 #; Lymphocytes # 1.1 10*3/uL (1.4-4.0); Lymphocytes % 20.1 % (21.2-54.2); Mean Corpuscular HGB Conc 31.9 GM/DL (32-36); Mean Corpuscular Hemoglobin 31 PG (27-34); Monocytes # 0.6 10*3/uL (0.11-0.8); Monocytes % 9.9 % (1.7-12.7); NRBC # 0.03 10*3/uL; Neutrophils # 3.6 10*3/uL (1.4-7.4); Neutrophils % 65.8 % (38.7-73.9); Platelet Count 176 T/CUMM (130-400); Red Blood Count 3.23 MC/CUMM (3.8-5.5); Red Cell Distribution Width 14.3 % (9.3-17.3); White Blood Count 5.5 T/CUMM (4-12)
[2017-08-15 06:38] LABS: Albumin 2.8 G/DL (3.4-5.0); Bilirubin,Total 0.9 MG/DL (0.2-1.0); Calcium 7.8 MG/DL (8.5-10.1); Osmolality,Calculated 294.1 MOS/KG (273-304); Potassium 3.5 MMOL/L (3.5-5.1); Total Protein 5.5 G/DL (6.4-8.3)
[2017-08-15] MEDS ORDERED: IRON SUCROSE 100 MG/5 ML VIAL IV ONE (11:00)
[2017-08-15] MEDS ORDERED: IRON SUCROSE 100 MG/5 ML VIAL IV PRN (13:03)
[2017-08-15 14:55] LABS: INR 1.3
[2017-08-15] MEDS: MORPHINE 2 MG/1 ML SYRINGE IV PRN (15:15)
[2017-08-15 19:43] LABS: % Iron Saturation 25.7 % (18-50)
[2017-08-15 20:39] LABS: Hepatitis A Ab IgM Result Negative (Negative); Hepatitis B Core IgM Quant 0.16 Index; Hepatitis B Core IgM Result Negative (Negative); Hepatitis B Surface Ag Quant < 0.10 Index; Hepatitis B Surface Ag Result Negative (Negative); Hepatitis C Virus Ab Quant 0.07 Index; Hepatitis C Virus Ab Result Negative (Negative)
[2017-08-16] MEDS: MORPHINE 2 MG/1 ML SYRINGE IV PRN ×4 (03:20→21:15)
[2017-08-16 06:54] LABS: Bilirubin,Direct 0.39 MG/DL (0.0-0.20); Bilirubin,Indirect 0.6 MG/DL (0.0-1.0); Total Protein 5.9 G/DL (6.4-8.3)
[2017-08-17] MEDS: MORPHINE 2 MG/1 ML SYRINGE IV PRN ×4 (04:35→23:59)
[2017-08-17 06:56] LABS: Albumin 3.1 G/DL (3.4-5.0); Bilirubin,Direct 0.28 MG/DL (0.0-0.20); Bilirubin,Indirect 0.4 MG/DL (0.0-1.0); Bilirubin,Total 0.7 MG/DL (0.2-1.0); Total Protein 6.2 G/DL (6.4-8.3)
[2017-08-17] MEDS: CARVEDILOL 25 MG TABLET PO SCH ×2 (10:01→20:03)
[2017-08-17] MEDS: ASPIRIN EC 81 MG TABLET PO SCH (10:01)
[2017-08-17] MEDS: CINACALCET 30 MG TABLET PO SCH (10:01)
[2017-08-17] MEDS: amLODIPine 10 MG TABLET PO SCH (10:01)
[2017-08-17] MEDS: GABAPENTIN 400 MG CAPSULE PO SCH ×3 (10:02→20:03)
[2017-08-17] MEDS ORDERED: SKIN HEALING OINT (AQUAPHOR) 50 GM TUBE TOP PRN (15:15)
[2017-08-17] MEDS: LATANOPROST 0.005% OPH SOLN 2.5 ML BOTTLE BOTH EYES SCH (20:05)
[2017-08-18 07:08] LABS: Albumin 2.8 G/DL (3.4-5.0); Bilirubin,Direct 0.26 MG/DL (0.0-0.20); Bilirubin,Indirect 0.5 MG/DL (0.0-1.0); Bilirubin,Total 0.8 MG/DL (0.2-1.0); Total Protein 5.8 G/DL (6.4-8.3)
[2017-08-18] MEDS: MORPHINE 2 MG/1 ML SYRINGE IV PRN ×3 (08:01→20:45)
[2017-08-18] MEDS: amLODIPine 10 MG TABLET PO SCH (08:01)
[2017-08-18] MEDS: ASPIRIN EC 81 MG TABLET PO SCH (08:01)
[2017-08-18] MEDS: GABAPENTIN 400 MG CAPSULE PO SCH ×3 (08:01→20:38)
[2017-08-18] MEDS: CARVEDILOL 25 MG TABLET PO SCH ×2 (08:01→20:38)
[2017-08-18] MEDS: CINACALCET 30 MG TABLET PO SCH (08:03)
[2017-08-18] MEDS: LATANOPROST 0.005% OPH SOLN 2.5 ML BOTTLE BOTH EYES SCH (20:38)
[2017-08-19] MEDS: MORPHINE 2 MG/1 ML SYRINGE IV PRN ×3 (04:14→21:40)
[2017-08-19] MEDS: GABAPENTIN 400 MG CAPSULE PO SCH ×3 (08:13→21:41)
[2017-08-19] MEDS: ASPIRIN EC 81 MG TABLET PO SCH (08:13)
[2017-08-19] MEDS: amLODIPine 10 MG TABLET PO SCH (08:13)
[2017-08-19] MEDS: CARVEDILOL 25 MG TABLET PO SCH ×2 (08:13→21:41)
[2017-08-19] MEDS: CINACALCET 30 MG TABLET PO SCH (08:13)
[2017-08-19] MEDS: LATANOPROST 0.005% OPH SOLN 2.5 ML BOTTLE BOTH EYES SCH (21:44)
[2017-08-20] MEDS: MORPHINE 2 MG/1 ML SYRINGE IV PRN ×2 (04:18→13:34)
[2017-08-20] MEDS: CARVEDILOL 25 MG TABLET PO SCH ×2 (08:18→20:43)
[2017-08-20] MEDS: ASPIRIN EC 81 MG TABLET PO SCH (08:18)
[2017-08-20] MEDS: CINACALCET 30 MG TABLET PO SCH (08:18)
[2017-08-20] MEDS: GABAPENTIN 400 MG CAPSULE PO SCH ×3 (08:18→20:43)
[2017-08-20] MEDS: amLODIPine 10 MG TABLET PO SCH (08:18)
[2017-08-20 08:46] LABS: Bilirubin,Direct 0.26 MG/DL (0.0-0.20); Bilirubin,Indirect 0.2 MG/DL (0.0-1.0); Bilirubin,Total 0.5 MG/DL (0.2-1.0); Total Protein 6.1 G/DL (6.4-8.3)
[2017-08-20] MEDS: LATANOPROST 0.005% OPH SOLN 2.5 ML BOTTLE BOTH EYES SCH (20:43)
[2017-08-21] MEDS: MORPHINE 2 MG/1 ML SYRINGE IV PRN ×3 (01:24→10:54)
[2017-08-21] MEDS: GABAPENTIN 400 MG CAPSULE PO SCH ×2 (08:41→16:14)
[2017-08-21] MEDS: ASPIRIN EC 81 MG TABLET PO SCH (08:41)
[2017-08-21] MEDS: amLODIPine 10 MG TABLET PO SCH (08:43)
[2017-08-21] MEDS: CARVEDILOL 25 MG TABLET PO SCH (08:43)
[2017-08-21] MEDS: CINACALCET 30 MG TABLET PO SCH (09:38)
[2017-08-21 10:27] VITALS: BP 107/59
== END 2017-08-21 17:15 | disposition home health service (06) | DRG 391 ==
LOC: N.5E 21:26 → SUATTDRO 21:26
PROVIDERS: ADMIT Family Medicine; ATTEND Internal Medicine

== ENCOUNTER 2017-09-25 14:18 | Inpatient (IN) ==
[2017-09-25 15:07] LABS: Basophils % 0.4 % (0.0-0.8); Eosinophils # 0.1 10*3/uL (0.0-0.87); Eosinophils % 1.5 % (0.00-10.9); Hematocrit 35.6 VOL% (42.0-52.0); Immature Granulocytes % 0.6 %; Immature Granulocytes Absolute 0.04 #; Lymphocytes # 1.3 10*3/uL (1.4-4.0); Lymphocytes % 18.8 % (21.2-54.2); Mean Corpuscular HGB Conc 30.9 GM/DL (32-36); Mean Corpuscular Hemoglobin 30 PG (27-34); Mean Corpuscular Volume 97.3 FL (87-102); Monocytes # 0.5 10*3/uL (0.11-0.8); Monocytes % 7.2 % (1.7-12.7); Neutrophils # 4.9 10*3/uL (1.4-7.4); Neutrophils % 71.5 % (38.7-73.9); Platelet Count 179 T/CUMM (130-400); Red Blood Count 3.66 MC/CUMM (3.8-5.5); Red Cell Distribution Width 15.2 % (9.3-17.3); White Blood Count 6.8 T/CUMM (4-12)
[2017-09-25 15:21] LABS: INR 1.1; PT Patient Result 11.6 SECS
[2017-09-25 15:40] LABS: Albumin 3.2 G/DL (3.4-5.0); Bilirubin,Total 0.5 MG/DL (0.2-1.0); Osmolality,Calculated 307.8 MOS/KG (273-304); Potassium 5.2 MMOL/L (3.5-5.1); Total Protein 7.1 G/DL (6.4-8.3); Troponin I Only 0.026 NG/ML (0.00-0.045)
[2017-09-25 16:33] LABS: Apearance,Urine CLOUDY (Clear); Bilirubin,Urine Negative (Negative); Blood, Urine Moderate mg/dL (Negative); Glucose,Urine (UA) 150 mg/dL (Negative); Ketones,Urine Negative (Negative); Nitrite,Urine Negative (Negative); Protein,Urine >=500 MG/DL; Urine Color Yellow (Yellow); Urine Specific Gravity 1.015 (1.001-1.035); Urine Urobilinogen < 2.0 EU/DL (0.2-1.0); WBC,Urine 2204 /HPF (0-6)
[2017-09-25] MEDS ORDERED: ACETAMINOPHEN 325 MG TABLET PO PRN (16:44)
[2017-09-25] MEDS ORDERED: ONDANSETRON 4 MG/2 ML VIAL IV PRN (16:44)
[2017-09-25] MEDS ORDERED: DOCUSATE SODIUM 100 MG CAPSULE PO PRN (16:44)
[2017-09-25] MEDS ORDERED: guaiFENesin/DM ER 600-30 MG TABLET PO PRN (16:44)
[2017-09-25] MEDS ORDERED: LEVOFLOXACIN INJ 500 MG in PREMIX 1 EACH IV SCH (17:00)
[2017-09-25] MEDS: PANTOPRAZOLE 40 MG TABLET PO SCH (17:55)
[2017-09-25] MEDS ORDERED: PANTOPRAZOLE 40 MG TABLET PO ONE (17:58)
[2017-09-25] MEDS ORDERED: cefTRIAXone 1,000 MG VIAL ONE (17:58)
[2017-09-25] MEDS: cefTRIAXone 1,000 MG in SYRINGE 1 EACH IV SCH (18:12)
[2017-09-25] MEDS ORDERED: LABETALOL 20 MG/4 ML SYRINGE IV PRN (18:53)
[2017-09-25] MEDS: GABAPENTIN 300 MG CAPSULE PO SCH (21:29)
[2017-09-25] MEDS: CARVEDILOL 25 MG TABLET PO SCH (21:30)
[2017-09-25] MEDS: amLODIPine 10 MG TABLET PO SCH (21:30)
[2017-09-25] MEDS: CINACALCET 30 MG TABLET PO SCH (21:30)
[2017-09-25] MEDS: ASPIRIN EC 81 MG TABLET PO SCH (21:30)
[2017-09-25] MEDS: MORPHINE 2 MG/1 ML SYRINGE IV PRN (23:28)
[2017-09-25] MEDS: LATANOPROST 0.005% OPH SOLN 2.5 ML BOTTLE BOTH EYES SCH (23:31)
[2017-09-26] MEDS: amLODIPine 10 MG TABLET PO SCH (08:43)
[2017-09-26] MEDS: PANTOPRAZOLE 40 MG TABLET PO SCH (08:43)
[2017-09-26] MEDS: ASPIRIN EC 81 MG TABLET PO SCH (08:43)
[2017-09-26] MEDS: CINACALCET 30 MG TABLET PO SCH (08:43)
[2017-09-26] MEDS: CARVEDILOL 25 MG TABLET PO SCH ×2 (08:43→21:37)
[2017-09-26] MEDS ORDERED: DEXTROSE 50% 25 GM/50 ML VIAL IV PRN (12:01)
[2017-09-26] MEDS ORDERED: GLUCAGON 1 MG VIAL IM PRN (12:01)
[2017-09-26] MEDS: MORPHINE 2 MG/1 ML SYRINGE IV PRN ×2 (15:25→21:37)
[2017-09-26] MEDS: cefTRIAXone 1,000 MG in SYRINGE 1 EACH IV SCH (16:41)
[2017-09-26] MEDS: GABAPENTIN 300 MG CAPSULE PO SCH (21:37)
[2017-09-26] MEDS: LATANOPROST 0.005% OPH SOLN 2.5 ML BOTTLE BOTH EYES SCH (21:43)
[2017-09-27] MEDS: MORPHINE 2 MG/1 ML SYRINGE IV PRN ×3 (03:41→21:26)
[2017-09-27] MEDS: PANTOPRAZOLE 40 MG TABLET PO SCH (08:09)
[2017-09-27] MEDS: CARVEDILOL 25 MG TABLET PO SCH ×2 (08:09→21:26)
[2017-09-27] MEDS: amLODIPine 10 MG TABLET PO SCH (08:09)
[2017-09-27] MEDS: CINACALCET 30 MG TABLET PO SCH (08:09)
[2017-09-27] MEDS: ASPIRIN EC 81 MG TABLET PO SCH (08:09)
[2017-09-27] MEDS: cefTRIAXone 1,000 MG in SYRINGE 1 EACH IV SCH (16:50)
[2017-09-27] MEDS: LATANOPROST 0.005% OPH SOLN 2.5 ML BOTTLE BOTH EYES SCH (21:26)
[2017-09-27] MEDS: GABAPENTIN 300 MG CAPSULE PO SCH (21:26)
[2017-09-28] MEDS: PANTOPRAZOLE 40 MG TABLET PO SCH (09:18)
[2017-09-28] MEDS: amLODIPine 10 MG TABLET PO SCH (09:18)
[2017-09-28] MEDS: CINACALCET 30 MG TABLET PO SCH (09:18)
[2017-09-28] MEDS: ASPIRIN EC 81 MG TABLET PO SCH (09:18)
[2017-09-28] MEDS: CARVEDILOL 25 MG TABLET PO SCH (09:20)
[2017-09-28 12:28] VITALS: BP 120/58
== END 2017-09-28 13:46 | disposition hospice, home (50) | DRG 698 ==
LOC: EDBD → EDUNIT# → N.ED 14:18 → N.EDINP 16:44 → N.5E 19:39
PROVIDERS: ADMIT Internal Medicine Geriatric Medicine; ATTEND Internal Medicine Geriatric Medicine

== ENCOUNTER 2017-10-06 20:55 | Inpatient (IN) ==
[2017-10-06 23:08] LABS: Basophils % 0.3 % (0.0-0.8); Eosinophils # 0.2 10*3/uL (0.0-0.87); Eosinophils % 3.5 % (0.00-10.9); Hematocrit 34.7 VOL% (42.0-52.0); Immature Granulocytes % 0.3 %; Immature Granulocytes Absolute 0.02 #; Lymphocytes # 0.9 10*3/uL (1.4-4.0); Lymphocytes % 14.3 % (21.2-54.2); Mean Corpuscular HGB Conc 31.7 GM/DL (32-36); Mean Corpuscular Hemoglobin 30 PG (27-34); Mean Corpuscular Volume 95.9 FL (87-102); Mean Platelet Volume 10.8 FL (9.6-12.0); Monocytes # 0.5 10*3/uL (0.11-0.8); Monocytes % 8.2 % (1.7-12.7); Neutrophils # 4.5 10*3/uL (1.4-7.4); Neutrophils % 73.4 % (38.7-73.9); Platelet Count 170 T/CUMM (130-400); Red Blood Count 3.62 MC/CUMM (3.8-5.5); Red Cell Distribution Width 16.2 % (9.3-17.3); White Blood Count 6.1 T/CUMM (4-12)
[2017-10-06 23:30] LABS: Albumin 3.4 G/DL (3.4-5.0); Bilirubin,Total 0.5 MG/DL (0.2-1.0); Osmolality,Calculated 305.1 MOS/KG (273-304); Potassium 5.1 MMOL/L (3.5-5.1); Total Protein 7.6 G/DL (6.4-8.3)
[2017-10-07 06:21] LABS: Basophils % 0.2 % (0.0-0.8); Eosinophils # 0.2 10*3/uL (0.0-0.87); Eosinophils % 3.3 % (0.00-10.9); Hemoglobin 10.8 GM/DL (14.0-18.0); Immature Granulocytes % 0.4 %; Immature Granulocytes Absolute 0.02 #; Lymphocytes # 1.1 10*3/uL (1.4-4.0); Lymphocytes % 20.3 % (21.2-54.2); Mean Corpuscular HGB Conc 32.7 GM/DL (32-36); Mean Corpuscular Hemoglobin 30 PG (27-34); Mean Platelet Volume 10.7 FL (9.6-12.0); Monocytes # 0.5 10*3/uL (0.11-0.8); Monocytes % 10.1 % (1.7-12.7); Neutrophils # 3.4 10*3/uL (1.4-7.4); Neutrophils % 65.7 % (38.7-73.9); Platelet Count 150 T/CUMM (130-400); Red Blood Count 3.55 MC/CUMM (3.8-5.5); Red Cell Distribution Width 16.3 % (9.3-17.3); White Blood Count 5.2 T/CUMM (4-12)
[2017-10-07] MEDS ORDERED: DEXTROSE 50% 25 GM/50 ML VIAL IV PRN (06:28)
[2017-10-07] MEDS ORDERED: GLUCAGON 1 MG VIAL IM PRN (06:28)
[2017-10-07 06:45] LABS: Calcium 7.8 MG/DL (8.5-10.1); Potassium 5.3 MMOL/L (3.5-5.1)
[2017-10-07] MEDS: INSULIN LISPRO 100 UNIT/ML SUBCUT SCH ×4 (08:00→21:41)
[2017-10-08] MEDS: hydrALAZINE 20 MG/1 ML VIAL IV PRN ×2 (00:14→10:44)
[2017-10-08] MEDS: INSULIN LISPRO 100 UNIT/ML SUBCUT SCH ×4 (08:23→21:51)
[2017-10-08 10:39] LABS: Hepatitis A Ab IgM Quant 0.09 Index; Hepatitis A Ab IgM Result Negative (Negative); Hepatitis B Core IgM Quant 0.18 Index; Hepatitis B Core IgM Result Negative (Negative); Hepatitis B Surface Ag Quant < 0.10 Index; Hepatitis B Surface Ag Result Negative (Negative); Hepatitis C Virus Ab Result Negative (Negative)
[2017-10-08] MEDS ORDERED: SENNA 8.6 MG TABLET PO PRN (23:31)
[2017-10-09 06:58] LABS: Basophils % 0.2 % (0.0-0.8); Eosinophils # 0.1 10*3/uL (0.0-0.87); Eosinophils % 2.2 % (0.00-10.9); Hemoglobin 9.5 GM/DL (14.0-18.0); Immature Granulocytes % 0.5 %; Immature Granulocytes Absolute 0.02 #; Lymphocytes # 0.8 10*3/uL (1.4-4.0); Lymphocytes % 19.5 % (21.2-54.2); Mean Corpuscular HGB Conc 31.7 GM/DL (32-36); Mean Corpuscular Hemoglobin 30 PG (27-34); Mean Corpuscular Volume 95.2 FL (87-102); Mean Platelet Volume 11.1 FL (9.6-12.0); Monocytes # 0.5 10*3/uL (0.11-0.8); Monocytes % 11.4 % (1.7-12.7); Neutrophils # 2.7 10*3/uL (1.4-7.4); Neutrophils % 66.2 % (38.7-73.9); Platelet Count 126 T/CUMM (130-400); Red Blood Count 3.15 MC/CUMM (3.8-5.5); Red Cell Distribution Width 16.4 % (9.3-17.3); White Blood Count 4.1 T/CUMM (4-12)
[2017-10-09 07:31] LABS: Calcium 7.7 MG/DL (8.5-10.1); Osmolality,Calculated 301.5 MOS/KG (273-304); Potassium 4.7 MMOL/L (3.5-5.1)
[2017-10-09] MEDS: INSULIN LISPRO 100 UNIT/ML SUBCUT SCH ×4 (08:19→21:35)
[2017-10-09] MEDS: amLODIPine 10 MG TABLET PO SCH (14:39)
[2017-10-09] MEDS ORDERED: LATANOPROST 0.005% OPH SOLN 2.5 ML BOTTLE BOTH EYES SCH (21:00)
[2017-10-09] MEDS ORDERED: GABAPENTIN 300 MG CAPSULE PO SCH (21:00)
[2017-10-09] MEDS: CARVEDILOL 25 MG TABLET PO SCH (21:35)
[2017-10-10 07:07] LABS: Basophils % 0.3 % (0.0-0.8); Eosinophils # 0.2 10*3/uL (0.0-0.87); Eosinophils % 4.6 % (0.00-10.9); Hematocrit 31.3 VOL% (42.0-52.0); Immature Granulocytes % 0.3 %; Immature Granulocytes Absolute 0.01 #; Lymphocytes % 24.3 % (21.2-54.2); Mean Corpuscular HGB Conc 31.9 GM/DL (32-36); Mean Corpuscular Hemoglobin 30 PG (27-34); Mean Corpuscular Volume 94.8 FL (87-102); Mean Platelet Volume 11.1 FL (9.6-12.0); Monocytes # 0.4 10*3/uL (0.11-0.8); Neutrophils # 2.3 10*3/uL (1.4-7.4); Neutrophils % 59.5 % (38.7-73.9); Platelet Count 146 T/CUMM (130-400); Red Cell Distribution Width 16.3 % (9.3-17.3); White Blood Count 3.9 T/CUMM (4-12)
[2017-10-10 07:27] LABS: Calcium 7.7 MG/DL (8.5-10.1); Osmolality,Calculated 299.8 MOS/KG (273-304); Potassium 5.2 MMOL/L (3.5-5.1)
[2017-10-10] MEDS: amLODIPine 10 MG TABLET PO SCH (08:51)
[2017-10-10] MEDS: CARVEDILOL 25 MG TABLET PO SCH (08:52)
[2017-10-10] MEDS: INSULIN LISPRO 100 UNIT/ML SUBCUT SCH ×3 (08:53→15:40)
[2017-10-10] MEDS ORDERED: ASPIRIN EC 81 MG TABLET PO SCH (09:00)
[2017-10-10] MEDS ORDERED: CINACALCET 30 MG TABLET PO SCH (09:00)
[2017-10-10 17:56] VITALS: BP 132/61
== END 2017-10-10 18:15 | disposition home health service (06) | DRG 640 ==
LOC: EDUNIT# → EDBD → N.ED 20:55 → SUATTDRO 10-07 00:01 → N.EDINP 10-07 00:01 → N.5E 10-07 00:37
PROVIDERS: ADMIT Internal Medicine; ATTEND Internal Medicine

== ENCOUNTER 2018-04-08 19:08 | Observation (INO) ==
[2018-04-08] MEDS ORDERED: hydrALAZINE 20 MG/1 ML VIAL IV STA (19:24)
[2018-04-08 19:50] LABS: Basophils % 0.3 % (0.0-0.8); Eosinophils # 0.2 10*3/uL (0.0-0.87); Eosinophils % 3.4 % (0.00-10.9); Hematocrit 27.8 VOL% (42.0-52.0); Hemoglobin 9.5 GM/DL (14.0-18.0); Immature Granulocytes % 0.4 %; Immature Granulocytes Absolute 0.03 #; Lymphocytes # 1.4 10*3/uL (1.4-4.0); Lymphocytes % 20.7 % (21.2-54.2); Mean Corpuscular HGB Conc 34.2 GM/DL (32-36); Mean Corpuscular Hemoglobin 32 PG (27-34); Mean Corpuscular Volume 93.9 FL (87-102); Mean Platelet Volume 10.9 FL (9.6-12.0); Monocytes # 0.6 10*3/uL (0.11-0.8); Monocytes % 8.7 % (1.7-12.7); Neutrophils # 4.5 10*3/uL (1.4-7.4); Neutrophils % 66.5 % (38.7-73.9); Platelet Count 139 T/CUMM (130-400); Red Blood Count 2.96 MC/CUMM (3.8-5.5); Red Cell Distribution Width 13.2 % (9.3-17.3); White Blood Count 6.8 T/CUMM (4-12)
[2018-04-08 20:12] LABS: Calcium 7.3 MG/DL (8.5-10.1); Osmolality,Calculated 328.3 MOS/KG (273-304)
[2018-04-08] MEDS ORDERED: PROMETHAZINE 25 MG/1 ML VIAL IM PRN (20:48)
[2018-04-08] MEDS ORDERED: ONDANSETRON 4 MG/2 ML VIAL IV PRN (20:48)
[2018-04-08] MEDS ORDERED: DEXTROSE 50% 25 GM/50 ML VIAL IV PRN (23:21)
[2018-04-08] MEDS ORDERED: GLUCAGON 1 MG VIAL IM PRN (23:21)
[2018-04-08] MEDS: SODIUM CHLORIDE 0.45% 1,000 ML IV SCH (23:56)
[2018-04-08] MEDS: ENOXAPARIN 30 MG/0.3 ML SYRINGE SUBCUT SCH (23:56)
[2018-04-08] MEDS: GABAPENTIN 300 MG CAPSULE PO SCH (23:56)
[2018-04-08] MEDS: CARVEDILOL 25 MG TABLET PO SCH (23:56)
[2018-04-09] MEDS: LATANOPROST 0.005% OPH SOLN 2.5 ML BOTTLE BOTH EYES SCH ×2 (00:08→20:45)
[2018-04-09] MEDS ORDERED: hydrALAZINE 20 MG/1 ML VIAL IM PRN (00:46)
[2018-04-09] MEDS ORDERED: hydrALAZINE 20 MG/1 ML VIAL IV PRN (00:59)
[2018-04-09 06:25] LABS: Basophils % 0.2 % (0.0-0.8); Eosinophils # 0.2 10*3/uL (0.0-0.87); Eosinophils % 3.2 % (0.00-10.9); Hematocrit 25.3 VOL% (42.0-52.0); Hemoglobin 8.6 GM/DL (14.0-18.0); Immature Granulocytes % 0.6 %; Immature Granulocytes Absolute 0.03 #; Lymphocytes % 20.7 % (21.2-54.2); Mean Corpuscular Hemoglobin 32 PG (27-34); Mean Corpuscular Volume 94.8 FL (87-102); Mean Platelet Volume 11.3 FL (9.6-12.0); Monocytes # 0.3 10*3/uL (0.11-0.8); Monocytes % 7.2 % (1.7-12.7); Neutrophils # 3.2 10*3/uL (1.4-7.4); Neutrophils % 68.1 % (38.7-73.9); Platelet Count 120 T/CUMM (130-400); Red Blood Count 2.67 MC/CUMM (3.8-5.5); Red Cell Distribution Width 13.2 % (9.3-17.3); White Blood Count 4.7 T/CUMM (4-12)
[2018-04-09 06:47] LABS: Albumin 3.2 G/DL (3.4-5.0); Bilirubin,Total 0.6 MG/DL (0.2-1.0); Calcium 7.2 MG/DL (8.5-10.1); Total Protein 6.2 G/DL (6.4-8.3)
[2018-04-09 06:48] LABS: Osmolality,Calculated 330.3 MOS/KG (273-304); Potassium 5.3 MMOL/L (3.5-5.1)
[2018-04-09] MEDS ORDERED: EPOETIN ALFA 10,000 UNIT/1 ML VIAL IV PRN (09:03)
[2018-04-09] MEDS: ACETAMINOPHEN 325 MG TABLET PO PRN ×2 (09:45→19:21)
[2018-04-09] MEDS: INSULIN LISPRO 100 UNIT/ML SUBCUT SCH ×4 (09:45→20:55)
[2018-04-09] MEDS: ASPIRIN EC 81 MG TABLET PO SCH (09:47)
[2018-04-09] MEDS: PANTOPRAZOLE 40 MG TABLET PO SCH (09:47)
[2018-04-09] MEDS: amLODIPine 10 MG TABLET PO SCH (13:08)
[2018-04-09] MEDS: CARVEDILOL 25 MG TABLET PO SCH ×2 (13:08→20:45)
[2018-04-09] MEDS: SODIUM CHLORIDE 0.45% 1,000 ML IV SCH ×2 (20:44→20:51)
[2018-04-09] MEDS: ENOXAPARIN 30 MG/0.3 ML SYRINGE SUBCUT SCH (20:45)
[2018-04-09] MEDS: GABAPENTIN 300 MG CAPSULE PO SCH (20:46)
[2018-04-10] MEDS: CARVEDILOL 25 MG TABLET PO SCH (08:13)
[2018-04-10] MEDS: ASPIRIN EC 81 MG TABLET PO SCH (08:13)
[2018-04-10] MEDS: INSULIN LISPRO 100 UNIT/ML SUBCUT SCH ×2 (08:13→11:04)
[2018-04-10] MEDS: amLODIPine 10 MG TABLET PO SCH (08:13)
[2018-04-10] MEDS: PANTOPRAZOLE 40 MG TABLET PO SCH (08:13)
[2018-04-10] MEDS: SODIUM CHLORIDE 0.45% 1,000 ML IV SCH (08:14)
[2018-04-10 10:21] LABS: Calcium 7.4 MG/DL (8.5-10.1); Osmolality,Calculated 298.4 MOS/KG (273-304); Potassium 4.3 MMOL/L (3.5-5.1)
[2018-04-10 10:53] LABS: Apearance,Urine CLEAR (Clear); Bilirubin,Urine Negative (Negative); Blood, Urine Negative (Negative); Glucose,Urine (UA) 150 mg/dL (Negative); Ketones,Urine Negative (Negative); Nitrite,Urine Negative (Negative); Protein,Urine >=500 MG/DL; RBC,Urine <1 /HPF (0-4); Squamous Epithelial Cell,Urine Occasional /HPF (0-10); Urine Color Straw (Yellow); Urine Specific Gravity 1.004 (1.001-1.035); Urine Urobilinogen < 2.0 EU/DL (0.2-1.0); WBC,Urine 1 /HPF (0-6)
[2018-04-10] MEDS ORDERED: MAGNESIUM SULF RIDER 2 GM in PREMIX 1 EACH IV PRN (11:21)
[2018-04-10] MEDS ORDERED: MAGNESIUM SULF RIDER 4 GM in PREMIX 1 EACH IV PRN (11:21)
[2018-04-10 13:48] VITALS: BP 134/69
== END 2018-04-10 15:53 | disposition home or self-care (01) ==
LOC: EDUNIT# → EDBD → N.ED 19:08 → N.EDINP 19:08 → N.5E 21:10
PROVIDERS: ADMIT Internal Medicine; ATTEND Internal Medicine

== ENCOUNTER 2018-07-29 11:20 | Inpatient (IN) ==
[2018-07-29] MEDS ORDERED: ACETAMINOPHEN 325 MG TABLET PO PRN (16:01)
[2018-07-29] MEDS ORDERED: ONDANSETRON 4 MG/2 ML VIAL IV PRN (16:01)
[2018-07-29 23:16] LABS: Calcium 8.1 MG/DL (8.5-10.1); Osmolality,Calculated 284.8 MOS/KG (273-304); Potassium 4.3 MMOL/L (3.5-5.1)
[2018-07-30 05:58] LABS: Basophils % 0.2 % (0.0-0.8); Eosinophils # 0.2 10*3/uL (0.0-0.87); Eosinophils % 2.9 % (0.00-10.9); Hematocrit 30.7 VOL% (42.0-52.0); Hemoglobin 9.8 GM/DL (14.0-18.0); Immature Granulocytes % 0.5 %; Immature Granulocytes Absolute 0.03 #; Lymphocytes # 1.1 10*3/uL (1.4-4.0); Lymphocytes % 19.7 % (21.2-54.2); Mean Corpuscular HGB Conc 31.9 GM/DL (32-36); Mean Corpuscular Hemoglobin 32 PG (27-34); Monocytes # 0.4 10*3/uL (0.11-0.8); Monocytes % 7.7 % (1.7-12.7); Neutrophils # 3.9 10*3/uL (1.4-7.4); Platelet Count 148 T/CUMM (130-400); Red Blood Count 3.07 MC/CUMM (3.8-5.5); Red Cell Distribution Width 15.3 % (9.3-17.3); White Blood Count 5.6 T/CUMM (4-12)
[2018-07-30 06:10] LABS: Calcium 8.2 MG/DL (8.5-10.1)
[2018-07-30] MEDS ORDERED: CALCIUM ACETATE 667 MG CAPSULE PO SCH (08:00)
[2018-07-30 08:16] VITALS: BP 155/59
[2018-07-30] MEDS ORDERED: amLODIPine 10 MG TABLET PO SCH (09:00)
[2018-07-30] MEDS ORDERED: ASPIRIN EC 81 MG TABLET PO SCH (09:00)
[2018-07-30] MEDS ORDERED: PANTOPRAZOLE 40 MG TABLET PO SCH (09:00)
[2018-07-30] MEDS ORDERED: CARVEDILOL 25 MG TABLET PO SCH (09:00)
[2018-07-30] MEDS ORDERED: LATANOPROST 0.005% OPH SOLN 2.5 ML BOTTLE BOTH EYES SCH (21:00)
[2018-07-30] MEDS ORDERED: GABAPENTIN 300 MG CAPSULE PO SCH (21:00)
== END 2018-07-30 11:57 | disposition home or self-care (01) | DRG 640 ==
LOC: N.2W → SUATTDRO 14:32 → OBSVTOIN 14:32 → N.5E 21:27
PROVIDERS: ADMIT Internal Medicine; ATTEND Internal Medicine